=== PATIENT | male | born 1940 | race Two or more races ===

== ENCOUNTER 2022-05-17 10:51 | Inpatient (IN) | payer MEDICARE ==
[~2022-05-17] VITALS: Ht 180.3 cm; Wt 47.6 kg
--- NOTE | 2022-05-17 11:00 | NUR ---
ROLANDA PT 81 yrs male came from home s/p syncopy and dizzness awake and alert no sob
[2022-05-17] MEDS ORDERED: TDAP [DIPH/PERTUSSIS/TET] 0.5 ML VIAL IM ONE ×2 (11:19→11:30)
--- NOTE | 2022-05-17 11:20 | NUR ---
BLOOD DRAWN AND SENT TO LAB
[2022-05-17 11:24] LABS: BASOPHILS % (AUTO) 0.6 % (0.0-2.0); EOSINOPHILS % (AUTO) 0.1 % (0.0-6.0); HEMATOCRIT 39 % (39-51); HEMOGLOBIN 12.9 g/dL (13.5-17.5); LYMPHOCYTES # (AUTO) 1.9 K/uL (0.8-4.8); LYMPHOCYTES % (AUTO) 32.2 % (20.0-44.0); MEAN CORPUSCULAR HGB CONC 33 g/dl (31.0-36.0); MEAN CORPUSCULAR VOLUME 94 fL (80-96); MONOCYTES # (AUTO) 0.3 K/uL (0.1-1.30); MONOCYTES % (AUTO) 5.9 % (2.0-12.0); NEUTROPHILS # (AUTO) 3.5 K/uL (1.8-8.9); NEUTROPHILS % (AUTO) 61.2 % (43.0-81.0); PLATELET COUNT (AUTO) 172 K/uL (150-450); RED BLOOD CELL COUNT(AUTO) 4.21 MIL/uL (4.5-6.0); WHITE BLOOD COUNT (AUTO) 5.8 K/uL (4.3-11.0)
--- NOTE | 2022-05-17 11:25 | NUR ---
MOVE SHEET SUBMITTED.
[2022-05-17] MEDS ORDERED: IV NS 0.9% 1,000 ML BAG IV ONE ×2 (11:30→12:30)
[2022-05-17 11:44] LABS: ALANINE AMINOTRANSFERASE 59 U/L (12-78); ALBUMIN 2.7 g/dL (3.4-5.0); ALCOHOL, BLOOD < 3 mg/dL (0-0); ALKALINE PHOSPHATASE 71 U/L (46-116); ASPARTATE AMINOTRANSFERASE 180 U/L (15-37); BILIRUBIN,DIRECT 0.4 mg/dL (0.0-0.2); CALCIUM, SERUM 8.6 mg/dL (8.5-10.1); CARBON DIOXIDE 30 mmol/L (21-32); CHLORIDE 103 mmol/L (98-107); CREATININE 1.4 mg/dL (0.6-1.3); GLUCOSE 181 mg/dL (74-106); POTASSIUM 3.1 mmol/L (3.5-5.1); SODIUM SERUM 143 mmol/L (136-145); TOTAL PROTEIN, SERUM 6.8 g/dL (6.4-8.2); UREA NITROGEN, BLOOD 39 mg/dL (7-18)
[2022-05-17 11:57] LABS: SERUM AMMONIA 9 umol/L (11-32)
[2022-05-17 12:10] LABS: ACETAMINOPHEN < 10 ug/ml (10-30)
[2022-05-17] MEDS ORDERED: CEFEPIME 1 GM in IV D5W 50 ML IV ONE (12:30)
[2022-05-17] MEDS ORDERED: VANCOMYCIN 1 GM in IV D5W 250 ML IV ONE (12:30)
--- NOTE | 2022-05-17 13:00 | NUR ---
[facility] CALLED HUMAN RESOURCES MGR PAGED.
[2022-05-17] MEDS: Magnesium 1GM/D5W 100ML PREMIX 100 ML IV SCH ×4 (14:00→17:05)
[2022-05-17 14:03] LABS: BILIRUBIN,URINE 1+ (NEGATIVE); COLOR,URINE DARK YELLOW (YELLOW); LEUKOCYTE ESTERASE ,URINE NEGATIVE (NEGATIVE); NITRITE, URINE NEGATIVE (NEGATIVE); PH,URINE 5.5 (5.0-8.0); PROTEIN,URINE 1+ mg/dl (NEGATIVE); UGLUCOSE NEGATIVE (NEGATIVE)
[2022-05-17 14:19] LABS: BACTERIA,URINE None seen /HPF (None Seen); SQUAMOUS EPITHELIAL CELL,UR None Seen /HPF (None Seen); WBC,URINE NONE SEEN /HPF (0-3)
[2022-05-17] MEDS ORDERED: Magnesium 1GM/D5W 100ML PREMIX 200 ML IV ONE (14:40)
--- NOTE | 2022-05-17 15:46 | NUR ---
309-2. BETH FOR REPORT
[2022-05-17] MEDS ORDERED: POTASSIUM CHLORIDE 20 MEQ TAB.PRT.SR PO ONE ×2 (16:00→17:06)
--- NOTE | 2022-05-17 17:17 | NUR ---
NM LUNG VQ WAS COMPLETED.TECH:RB
--- NOTE | 2022-05-17 17:51 | NUR ---
Patient transferred to [facility], report given to Judy. All care endorsed.
[2022-05-17] MEDS ORDERED: MAGNESIUM HYDROXIDE 30 ML UDC PO PRN (18:00)
[2022-05-17] MEDS ORDERED: ACETAMINOPHEN 325 MG TABLET PO PRN (18:00)
[2022-05-17] MEDS ORDERED: MAG HYDROX/AL HYDROX/SIMETH 30 ML UDC PO PRN (18:00)
[2022-05-17] MEDS ORDERED: Z GUARD REMEDY 4 OZ OINT TP PRN (18:00)
[2022-05-17] MEDS ORDERED: ONDANSETRON HCL/PF 4 MG/2 ML VIAL IVP PRN (18:00)
[2022-05-17] MEDS ORDERED: ZOLPIDEM TARTRATE 5 MG TABLET PO PRN (18:00)
--- NOTE | 2022-05-17 19:30 | NUR ---
noc rn opening note received patient in bed, eating dinner. a/ox4, Hard of hearing. no s/s of apparent distress on room air. denies pain at this time. tele monitor reading sr with 62 bpm. IV NS running @75mls/hr. needs attended for now safety put in place. will continue with the plan of care for patient.
[2022-05-17] MEDS: IV NS 0.9% 1,000 ML IV PRN (19:59)
[2022-05-17 20:00] VITALS: BP 100/67
--- NOTE | 2022-05-17 20:01 | NUR ---
ACUTE DIALYSIS REGISTERED NURSEPRINTED CIRCUIT BOARD PCB DESIGNER NOTES ADMITTED A PATIENT FROM ER WITH C/C OF SYNCOPE AND WITH DIAGNOSIS OF PNEUMONIA AND PRESYNCOPE, ALERT AND ORIENT X 4 , VERBALLY RESPONSIVE AND WITH HARD OF HEARING BOTH EARS , FULL CODE AND PATIENT WITH NO KNOWN ALLERGY , ROOM AIR AND TOLERATED WELL , BODY ASSESSMENT DONE AND PHOTOS TAKEN PER HOSPITAL PROTOCOL , NO SOB OR DISTRESS NOTED , NO C/O OF HERRON AND DISCOMFORT , PATIENT ON BEDREST , CARDIAC LOW FAT , LOW CHOLESTEROL AND 2GM NA , IV ACCESS ON RIGHT FOREARM AND ALL BELONGINGS WERE ACCOUNTED FOR , V/S TAKEN AND RECORDED BP 147/83, P 110 , RR 20 , 95% O2 SAT AND 98.2 TEMP , ON TELE MONITOR WITH SR OF 110 PAC , SAFETY MEASURES PROVIDED , SIDERAILS UP X 2 , CALL LIGHT WITHIN REACH AND ENDORSED TO NEXT SHIFT .
[2022-05-18] MEDS ORDERED: CEFEPIME 1 GM in IV D5W 50 ML IV SCH (02:00)
[2022-05-18 05:23] VITALS: BP_SYST 125; BP_SYST 139; BP_SYST 154; BP_DIAS 78; BP_DIAS 81; BP_DIAS 99
[2022-05-18 05:46] LABS: BASOPHILS % (AUTO) 0.3 % (0.0-2.0); EOSINOPHILS % (AUTO) 0.7 % (0.0-6.0); HEMATOCRIT 39 % (39-51); HEMOGLOBIN 12.6 g/dL (13.5-17.5); LYMPHOCYTES # (AUTO) 2.6 K/uL (0.8-4.8); LYMPHOCYTES % (AUTO) 37.9 % (20.0-44.0); MEAN CORPUSCULAR HGB CONC 33 g/dl (31.0-36.0); MEAN CORPUSCULAR VOLUME 93 fL (80-96); MONOCYTES # (AUTO) 0.4 K/uL (0.1-1.30); MONOCYTES % (AUTO) 5.8 % (2.0-12.0); NEUTROPHILS # (AUTO) 3.8 K/uL (1.8-8.9); NEUTROPHILS % (AUTO) 55.3 % (43.0-81.0); PLATELET COUNT (AUTO) 174 K/uL (150-450); RED BLOOD CELL COUNT(AUTO) 4.14 MIL/uL (4.5-6.0); WHITE BLOOD COUNT (AUTO) 6.9 K/uL (4.3-11.0)
[2022-05-18 06:13] LABS: THYROID STIMULATING HORMONE 1.213 uIU/mL (0.358-3.74)
[2022-05-18 06:18] LABS: CALCIUM, SERUM 8.1 mg/dL (8.5-10.1); CREATININE 1.1 mg/dL (0.6-1.3); MAGNESIUM 2.1 mg/dL (1.8-2.4); PHOSPHORUS 2.2 mg/dL (2.5-4.9)
--- NOTE | 2022-05-18 06:50 | NUR ---
noc rn closing patient in bed, on his phone at this time. no s/s of apparent distress on room air. denies pain at this time. reading SR on the tele monitor with PVC's. IV NS running @ 75mls/hr. Patient ambulates with walker and with assist. all needs attended. all scheduled medications administered. will endorse to SARIKA Singh for continuity of patient care.
--- NOTE | 2022-05-18 07:52 | NUR ---
RN OPENING NOTE PATIENT AWAKE IN BED RESTING, A/O X 4. NO S/S OF PAIN NOTED AT THIS TIME. ON ROOM AIR, NO DISTRESS OR SHORTNESS OF BREATH NOTED. IV ACCESS RFA #18G, INTACT, PATENT AND FLUSHING WELL. PATIENT WITH EXTERNAL RADIOLOGY RECEPTIONIST WITH CURRENT READING OF SR WITH PVC'S AND HR OF 62. FALL AND SAFETY MEASURES IN PLACE, BED ALARM ON, BED IN LOW AND LOCK POSITION, CALL LIGHT AND TABLE WITHIN EASY REACH, SIDE RAILS UP X2. WILL CONTINUE TO MONITOR.
[2022-05-18] MEDS: PANTOPRAZOLE 40 MG TABLET.DR PO SCH (07:55)
[2022-05-18 08:00] VITALS: BP 119/66
[2022-05-18] MEDS ORDERED: K PHOS NEUTRAL 250 MG TABLET PO ONE (09:00)
[2022-05-18] MEDS ORDERED: CHOL100043 PO (09:21)
[2022-05-18] MEDS ORDERED: ACET-868 PO (09:21)
[2022-05-18] MEDS ORDERED: LISI1TAB55 PO (09:21)
[2022-05-18] MEDS ORDERED: ALBU18HF2 IH (09:21)
[2022-05-18] MEDS: IV NS 0.9% 1,000 ML IV PRN (09:32)
[2022-05-18] MEDS: NEUTRA PHOS 1 POWD.PACKET PO SCH ×2 (10:04→17:03)
[2022-05-18] MEDS: CEFEPIME 2 GM in IV D5W 100 ML IV SCH ×2 (11:31→23:49)
[2022-05-18 12:00] VITALS: BP 129/72
[2022-05-18 12:17] LABS: THYROID STIMULATING HORMONE 0.829 uIU/mL (0.358-3.74)
[2022-05-18] MEDS ORDERED: VANCOMYCIN 0.75 GM in IV D5W 250 ML IV SCH (13:00)
[2022-05-18] MEDS: VANCOMYCIN 1 GM in IV D5W 250 ML IV SCH (14:15)
[2022-05-18 16:00] VITALS: BP 110/67
--- NOTE | 2022-05-18 18:50 | NUR ---
DEBONER OPENING NOTES PATIENT IS AWAKE, ALERT AND ORIENTED. A/O X 4. NO S/S OF PAIN NOTED AT THIS TIME. ON ROOM AIR, NO DISTRESS OR SHORTNESS OF BREATH NOTED. IV ACCESS LFA #18G, INTACT, PATENT AND FLUSHING WELL. SAFETY MEASURES GIVEN WIHT BED ON LOWEST POSITION AND LOCKED. BED ALARM ON. BED IN LOWEST AND LOCKED POSITION. CALL LIGHT AND TABLE WITHIN EASY REACH. SIDE RAILS UP X2. WILL CONTINUE WITH THE PLAN OF CARE.
--- NOTE | 2022-05-18 19:01 | NUR ---
RN CLOSING NOTE PATIENT AWAKE IN BED RESTING, A/O X 4. NO S/S OF PAIN NOTED AT THIS TIME. ON ROOM AIR, NO DISTRESS OR SHORTNESS OF BREATH NOTED. IV ACCESS LFA #18G, INTACT, PATENT AND FLUSHING WELL. PATIENT WITH EXTERNAL FARM LOAN INSPECTOR WITH CURRENT READING OF SR AND HR OF 69. SCHEDULE MEDICATIONS ADMINISTERED. FALL AND SAFETY MEASURES IN PLACE, BED ALARM ON, BED IN LOW AND LOCK POSITION, CALL LIGHT AND TABLE WITHIN EASY REACH, SIDE RAILS UP X2. WILL ENDORSE TO DEPARTMENT STORE SALESPERSON.
[2022-05-18 20:55] VITALS: BP 148/74
[2022-05-19] VITALS: BP 148/92
[2022-05-19 05:00] VITALS: BP 157/81
[2022-05-19 05:48] LABS: BASOPHILS % (AUTO) 0.2 % (0.0-2.0); EOSINOPHILS % (AUTO) 0.5 % (0.0-6.0); HEMATOCRIT 33 % (39-51); HEMOGLOBIN 11.1 g/dL (13.5-17.5); LYMPHOCYTES # (AUTO) 1.7 K/uL (0.8-4.8); LYMPHOCYTES % (AUTO) 30.1 % (20.0-44.0); MEAN CORPUSCULAR HGB CONC 34 g/dl (31.0-36.0); MEAN CORPUSCULAR VOLUME 92 fL (80-96); MONOCYTES # (AUTO) 0.4 K/uL (0.1-1.30); MONOCYTES % (AUTO) 6.6 % (2.0-12.0); NEUTROPHILS # (AUTO) 3.5 K/uL (1.8-8.9); NEUTROPHILS % (AUTO) 62.6 % (43.0-81.0); PLATELET COUNT (AUTO) 161 K/uL (150-450); RED BLOOD CELL COUNT(AUTO) 3.54 MIL/uL (4.5-6.0); WHITE BLOOD COUNT (AUTO) 5.5 K/uL (4.3-11.0)
[2022-05-19 06:05] LABS: CALCIUM, SERUM 7.1 mg/dL (8.5-10.1); CREATININE 0.9 mg/dL (0.6-1.3); MAGNESIUM 1.3 mg/dL (1.8-2.4); PHOSPHORUS 2.3 mg/dL (2.5-4.9)
[2022-05-19 06:10] LABS: POTASSIUM 2.6 mmol/L (3.5-5.1)
--- NOTE | 2022-05-19 06:10 | NUR ---
HIGH DENSITY FINISHING OPERATOR NOTES PATIENT'S POTASSIUM LEVEL HAS CRITICAL VALUE OF 2.6 PER JASPER FROM LABORATORY. WILL REPORT TO THE DOCTOR.
[2022-05-19 07:09] VITALS: BP 157/81
--- NOTE | 2022-05-19 07:10 | NUR ---
CHAIN LINK FENCE INSTALLER CLOSING NOTES PATIENT AWAKE IN BED RESTING, A/O X 4. NO S/S OF PAIN NOTED AT THIS TIME. ON ROOM AIR, NO DISTRESS OR SHORTNESS OF BREATH NOTED. IV ACCESS LFA #18G, INTACT, PATENT AND FLUSHING WELL. PATIENT WITH EXTERNAL INSTRUCTION LIBRARIAN WITH CURRENT READING OF SR WITH PVC @ HR OF 66. SCHEDULE MEDICATIONS ADMINISTERED. FALL AND SAFETY MEASURES IN PLACE, BED ALARM ON, BED IN LOW AND LOCK POSITION, CALL LIGHT AND TABLE WITHIN EASY REACH, SIDE RAILS UP X2. WILL ENDORSE TO PHOTOGRAPHY INTERN.
--- NOTE | 2022-05-19 07:20 | NUR ---
RN OPENING NOTE RECEIVED PATIENT IN BED AWAKE, A/O X4, VERBALLY RESPONSIVE. NO SIGNS OF ACUTE DISTRESS NOTED. NO C/O PAIN OR DISCOMFORT AT THIS TIME. NOTED WITH IV ACCESS ON LEFT FOREARM #20G, INTACT AND PATENT WITH NS @75 ML/HR RUNNING. ON TELE MONITOR SHOWING SR WITH PAC'S. HR @87. SAFETY MEASURE IN PLACE. BED IN LOW AND LOCKED POSITION. SIDE RAILS UP X2, CALL LIGHT PLACED WITHIN EASY REACH. WILL CONTINUE TO MONITOR PATIENT.
[2022-05-19] MEDS: PANTOPRAZOLE 40 MG TABLET.DR PO SCH (07:50)
[2022-05-19 08:30] VITALS: BP 125/72
[2022-05-19] MEDS: POTASSIUM CHLORIDE 20 MEQ TAB.PRT.SR PO SCH ×5 (09:06→13:25)
[2022-05-19] MEDS: Magnesium 1GM/D5W 100ML PREMIX 100 ML IV SCH ×2 (09:07→10:12)
[2022-05-19] MEDS: NEUTRA PHOS 1 POWD.PACKET PO SCH ×2 (09:07→17:12)
--- NOTE | 2022-05-19 09:33 | NUR ---
WOUND CARE CONSULT: PT PRESENTS WITH MULTIPLE SKIN ISSUES INCLUDING DRY ABRASIONS TO FACE AND KNEES, DISCOLORATION TO RT FOOT WITH COOL RT TOES, RT BACK DEEP TISSUE INJURY/ABRASION, ALL PRESENT ON ADMISSION. PT STATES HAS LOST QUITE A BIT OF WEIGHT RECENTLY. DIETARY CONSULT IN PLACE. DISCUSSED SKIN PROTECTION AND WOUND CARE RECOMMENDATIONS WITH NURSING STAFF. DR YUE BASSETT CALLED FOR SURGICAL CONSULT ON BACK WOUND. IN AGREEMENT WITH PLAN OF CARE. Addendum: 05/19/22 at 0936 by ZAKIA BERGERU Amended: Links added. Addendum: 05/19/22 at 0949 by ZAKIA BERGERU UPON FURTHER INVESTIGATION, PT NOTED TO HAVE LESION WHICH EXTENDS FROM RT CHEST TO RT BACK, PRESENT ON ADMISSION. PT NOW STATES THAT THIS DEVELOPED AFTER HE FELL FORWARD ON HIS FACE AND KNEES. DR PAYNE EXAMINED PT. DR YUE BASSETT NOTIFIED THAT I.D. WILL SEE PT PER PMD.
[2022-05-19] MEDS: CEFEPIME 2 GM in IV D5W 100 ML IV SCH ×2 (11:13→23:49)
[2022-05-19 11:59] VITALS: BP 141/79
[2022-05-19] MEDS: VANCOMYCIN 1 GM in IV D5W 250 ML IV SCH (12:48)
--- NOTE | 2022-05-19 12:51 | NUR ---
SS consult: SS Consult requested for safe discharge planning. The pt. is 81-year-old male admitted to [facility] for Presyncope, pneumonia. BLAS met with pt. at bedside. The pt. is alert & oriented x 4 and makes good eye contact. The pt. appears unkempt. The pt. has euthymic mood & affect. Pt. denies SI/HI and denies hallucinations. Per pt. he resides at home [[address] [place] [address]; [phone]] alone. Per pt. he fell at home after tripping over raised asphalt on 05/13/2022 and was taken to [facility] and [place] home the same day. Pt. states he 05/17/[address] to [facility] where he had difficulty ambulating and was feeling weak and lightheaded, so paramedics brought him to the hospital. SW discussed if he is open to SNF or ARU if MD recommends this and pt. stated he will consider it. BLAS encouraged pt. to accept help with physical therapy so he may regain some strength. BLAS discussed alleged 30 lb weight loss with pt. and he stated he has lost hat weight in about 2 years time. Pt. states he has been working with him primary care physician Dr. Brumfield in [place] to figure out why he is losing weight. Pt. denies drug use and states he drinks occasionally, and it is not a problem for him. Per CM note pt. is not agreeable to SNF placement. BLAS provided pt. with senior resources including for transportation, meal delivery, DME, insurance assistance etc. Pt. was receptive and stated he will use resources as needed. Pt. denies any history of mental illness. Per pt. he is ambulatory with a walker and will use it for safe ambulation. Per pt. he receives SSI. [place] Plan: Per pt. he would like to return home [[address] [facility] [place] [address]; [phone]] alone. Pt. states his friend may be able to pick him up. BLAS provided pt. with the follow senior resources and pt. accepted them: ABUSE PREVENTION: ELDER ABUSE HOTLINE (17/11) ADULT PROTECTIVE SERVICES HOTLINE LONG-TERM CARE [facility] AREA ON AGING (HOTLINE) ADULT DAY HEALTH CARE CARE CENTERS: Private pay or Medi-kimberley funded adult day care [facility] Day Health Care [facility] , [facility] , [facility] , [facility] Adult Day Health Care , [facility] Adult Day Health Care , [facility] Adult Daycare Center , [place] [facility] , [facility] , [place] ALZHEIMERS DISEASE/DEMENTIA: Alzheimers Association Helpline [facility] www.alz.org/[facility] Department of Aging www.lacity.org Family Caregiver [place] www.caregiver.org [place] Caregiver Resources Center/Family Support www.suburban medical center.org CANCER RESOURCES: [place] Cancer Society www.cancer.org Cancer Support Community www.CancerSupportVvsb.org: CancerCare www.cancercare.org Maurisio [facility] Cancer Support Center www.spark.org COMMUNITY HEALTH ASSOCIATIONS: AARP www.aarp.org ALS Association (ask for Margie) www.als.org [place] Diabetes Association www.diabetes.org [place] Heart Association www.heart.org [place] Lung Association www.lungusa.org [place] Parkinson Disease Association www.apdaparkinson.org [place]an Abanda , www.redcross.org Arthritis Foundation www.arthritis.org Crohns & Colitis Foundation of [place]an www.ccfa.org/chapters/kervin National Multiple Sclerosis Society www.nationalmssociety.org Myasthenia Gravis Foundation www.myasthenia-ca.org National Stroke Association www.stroke.org CONSERVATORSHIP & GUARDIANSHIP: AARP Bet Tzedek Legal Services Center for Health Care Rights Eldercare Information and Referral Metal Sprayer Machined Parts [facility]: [facility] Referral Service [facility] Legal Services Office of the Public Guardian [place] EYESIGHT DISORDER RESOURCES: [place] Macular Degeneration Foundation [facility] www.[facility] centerin[facility].org GRIEF AND BEREAVEMENT RESOURCES: The [place] , [facility] THE [place] Connection , [facility] Bereavement Center , [place] HEARING DISORDER RESOURCES: [place] Telephone Access Program Deaf and Disabled Telecommunications Program www.ddtp.cpuc.ca.gov HearRx Hearing Centers ([place]) Better Hearing Systems , [place] GLAD ([facility] Agency on Deafness) V/ TTY; Legal Support Specialist , [facility] Hearing [facility] -low income hearing aid assistance www.collinsGini.netprotestant hospitalringfoundation.org [place] Hearing Care Diana HELP AT HOME CAREGIVER SUPPORT: In Home Support Services (Must have Medi-Kimberley to be eligible) *Ask for a list of agencies that provide services to assist with care in the home. Local Senior Centers also have listings of care providers. HOME SAFETY MODIFICATIONS AND EQUIPMENT: Senior centers have additional referrals. [place] RMDMgroup and Apple Seeds Investment Dept. Handyworker Program (low income) or Visit http://hcidla.[facility].org/kbj-ivagos-nb for more information National Seating and Mobility and/or ; Forever Active www.foreverg-Nosticsmed.Livekick Stay Home Safe www.Stayhomesafe.Livekick LIFE ALERT RESPONSE SYSTEM: AWAKline Services 399-684-8228 www. Box Score Games Life Alert 095-865-8803 www.lifeSimple Beatrtjiffstore Life Station 154-505-4362 www.Shanghai Soco Softwareation.Livekick Safe Return 515-140-3040 www.alz.or/safereturn Cell Phones for Seniors www.Iddiction MEALS AND FOOD PROGRAMS: [place] Meals on Wheels [phone] [place] Meals on Wheels [phone] [facility] [phone] [place] to the Homebound [phone] [place] to the Homebound [phone] [facility] to the Homebound [phone] [facility] to the Homebound [phone] Mohamud Henrry Rosado [phone] Kyle Garcia [place] [phone] ONE Generation [phone] [facility] [phone] [facility] [phone] Meals on Wheels [phone] For all ages: $6.85/ meal w side. Delivered M-F from 10 am-1pm. Application and payment is done over the phone. Frozen meals available for weekends. Emergency Food Coalition [phone] Katheryn Concrete Batch Plant Operator [phone] [facility] [phone] Katt Campa Outreach- Brown bag lunches [phone] SY[facility]IA [facility] [phone] MEAL/GROCERY DELIVERY PROGRAMS: [facility] Gourmet Meals [phone]- [facility] [phone]- [facility] Magic Kitchen [phone] Moms Meals [phone] (ask Christianson for Discount Select grocery stores may provide delivery. MEDICAL INSURANCE SUPPORT SERVICES: Center for Health Care Rights [phone] Health Insurance Counseling/Advocacy Programs (HICAP)-Must have Medicare. Offers counseling for Medi-Kimberley eligibility [phone] [facility] Concrete Batch Plant Operator [phone] www.[facility].ca.gov Medicare [phone] www.socialsecurity.org Social Security [phone] SENIOR ACTIVITY PROGRAMS: *Contact a local senior center, adult school, recreation facility or community college for education, fitness, recreation, and social programs. Aquatic Therapy and Adapted Exercise programs through [facility] [phone] Encore at [facility] [phone] www.[facility]/encore H2U- Senior Friends [phone] [place] Senior Programs [phone] www.oasisnet.org Suddenly 65 www.aidwyxtx33.com SENIOR CENTERS: [facility] [phone] [facility] Center[facility] [phone] [facility] [phone] [facility] [phone] [facility] [phone] [facility] [phone] [facility] [phone] [facility] [phone] One Generation, [facility] [phone] [facility] [phone] [facility] [phone] [facility] [phone] [facility] [phone] TRANSPORTATION: Local [facility] may have applications for transportation programs and additional resources. ACCESS Services [phone] Transportation for seniors and disabled persons 7 days a week requiring 254 hr. advance reservation. Must apply and register for program rm eligible. LookSharp (powering InternMatch) 097-020-1948 or [phone] Transportation for seniors and persons with ADA card/metro disabled card in the [facility]. M-F only. Must register for services. ONE GENERATION [phone] Serves 65 years + in conjunction with World Vital Records program. Must be registered with both programs. A to B Transport [phone] Provides wheelchair/gurney van service. Adult Medical Transport [phone] Accepts [facility] with prior authorization. Care Van [phone] Provides wheelchair Transport. [facility] Wide Transportation [phone] Provides gurney service [facility] [phone] Gurney Transport. [facility] Town Transportation [phone] wheelchair & gurney transport [facility] Transportation [phone] wheelchair & gurney transport [place] Non-Emergency Transport [phone] wheelchair & gurney transport [facility] Living [place] [phone] Short Term Transportation primarily for adults with disabilities on social security income. Nominal fee may apply and a reservation is required. [facility] Cab [phone] or [phone] True Sol Innovations [phone] [place] [address] Referral Services -[phone] For additional programs & services VETERANS RESOURCES: Submissions for Aid and Attendance should be done directly to Federal VA office locatd at : [address] [facility] [phone] National Caregiver Support Line [phone] [facility]ley [facility] Veterans Services Field Office [phone] [place] Department of Affairs [phone] Pension Information [phone]
[2022-05-19] MEDS: HYDROCHLOROTHIAZIDE 25 MG TABLET PO SCH (13:05)
[2022-05-19] MEDS: LISINOPRIL (20MG) 20 MG TABLET PO SCH (13:05)
[2022-05-19 16:10] VITALS: BP 160/97
[2022-05-19] MEDS: ENSURE ENLIVE 237 ML LIQUID (VANILLA) PO SCH (17:12)
--- NOTE | 2022-05-19 18:52 | NUR ---
RN CLOSING NOTE PATIENT IN BED AWAKE, A/O X4, VERBALLY RESPONSIVE. NO SIGNS OF ACUTE DISTRESS NOTED. NO C/O PAIN OR DISCOMFORT AT THIS TIME. IV ACCESS ON LEFT FOREARM #20G, INTACT AND PATENT SALINE LOCKED. CONTINUE ON TELE MONITOR SHOWING SR WITH OCCASIONAL PVC'S. HR @87. SAFETY MEASURE MAINTAINED, BED IN LOW AND LOCKED POSITION. SIDE RAILS UP X2, CALL LIGHT PLACED WITHIN EASY REACH. WILL ENDORSE TO NEXT SHIFT FOR CONTINUITY OF CARE.
--- NOTE | 2022-05-19 19:34 | NUR ---
RN OPENING NOTE PATIENT AWAKE IN BED. A/OX4. NO S/S OF DISTRESS, BREATHING WITHOUT DIFFICULTY ON ROOM AIR. LFA #20 SL INTACT AND PATENT. TELE READS SR 72. SAFETY MEASURES IN PLACE: BED LOCKED AND AT LOWEST POSITION, RAILS UP X2, CALL FERRIS WITHIN REACH. WILL CONTINUE TO MONITOR PATIENT.
[2022-05-20 05:52] LABS: BASOPHILS % (AUTO) 0.1 % (0.0-2.0); EOSINOPHILS % (AUTO) 0.1 % (0.0-6.0); HEMATOCRIT 32 % (39-51); HEMOGLOBIN 10.9 g/dL (13.5-17.5); LYMPHOCYTES % (AUTO) 23.6 % (20.0-44.0); MEAN CORPUSCULAR HGB CONC 34 g/dl (31.0-36.0); MEAN CORPUSCULAR VOLUME 91 fL (80-96); MONOCYTES # (AUTO) 0.5 K/uL (0.1-1.30); MONOCYTES % (AUTO) 6.3 % (2.0-12.0); NEUTROPHILS % (AUTO) 69.9 % (43.0-81.0); PLATELET COUNT (AUTO) 166 K/uL (150-450); RED BLOOD CELL COUNT(AUTO) 3.48 MIL/uL (4.5-6.0); WHITE BLOOD COUNT (AUTO) 8.6 K/uL (4.3-11.0)
--- NOTE | 2022-05-20 06:17 | NUR ---
RN CLOSING NOTE PATIENT ASLEEP IN BED. A/OX4, [place]. NO S/S OF DISTRESS, BREATHING WITHOUT DIFFICULTY ON ROOM AIR. LFA #20 SL INTACT AND PATENT. TELE READS SR 82. SAFETY MEASURES IN PLACE: BED LOCKED AND AT LOWEST POSITION, RAILS UP X2, CALL FERRIS WITHIN REACH. WILL ENDORSE TO NEXT SHIFT FOR MATI.
[2022-05-20 06:22] LABS: ALBUMIN 2.1 g/dL (3.4-5.0); CALCIUM, SERUM 7.7 mg/dL (8.5-10.1); CREATININE 0.9 mg/dL (0.6-1.3); MAGNESIUM 1.5 mg/dL (1.8-2.4); PHOSPHORUS 2.9 mg/dL (2.5-4.9); TOTAL PROTEIN, SERUM 5.8 g/dL (6.4-8.2)
--- NOTE | 2022-05-20 07:30 | NUR ---
BIOMASS PRODUCTION MANAGER OPENING NOTE PATIENT AWAKE IN BED. A/OX4, ABLE TO MAKE NEEDS KNOWN. ON ROOM AIR WITH NO S/S OF RESPIRATORY DISTRESS OR SOB. ON TELE MONITOR READING SR HR 89BPM. IV ACCESS ON LFA, #20 SL INTACT AND PATENT WITH NO SIGNS OF INFILTRATION. SAFETY MEASURES IN PLACE WITH BED LOCKED AND AT LOWEST POSITION, SIDE RAILS UP X2, CALL LIGHT AND TRAY WITHIN REACH. WILL CONTINUE TO MONITOR.
[2022-05-20] MEDS: ENSURE ENLIVE 237 ML LIQUID (VANILLA) PO SCH ×3 (07:58→17:15)
[2022-05-20 08:00] VITALS: BP 126/84
[2022-05-20] MEDS: HYDROCHLOROTHIAZIDE 25 MG TABLET PO SCH (08:23)
[2022-05-20] MEDS: PANTOPRAZOLE 40 MG TABLET.DR PO SCH (08:23)
[2022-05-20] MEDS: CHOLECALCIFEROL 1,000 UNIT TABLET (VIT D3) PO SCH (08:24)
[2022-05-20] MEDS: LISINOPRIL (20MG) 20 MG TABLET PO SCH (08:24)
[2022-05-20] MEDS: POTASSIUM CHLORIDE 20 MEQ TAB.PRT.SR PO SCH ×3 (08:52→12:24)
[2022-05-20] MEDS ORDERED: MAGNESIUM OXIDE 400 MG TABLET PO ONE (09:30)
[2022-05-20 12:00] VITALS: BP 121/67
[2022-05-20] MEDS: CEFEPIME 2 GM in IV D5W 100 ML IV SCH (12:09)
[2022-05-20] MEDS ORDERED: K PHOS NEUTRAL 250 MG TABLET PO ONE (14:00)
--- NOTE | 2022-05-20 14:18 | NUR ---
RN NOTE PATIENTS SON KEITH CALLED TO INFORM HOSPITAL STAFF THAT HIS DAD NEEDS A CHILD CARE EDUCATION COORDINATOR CONSULT. THAT HIS DAD REFUSES TO TELL ANYONE THE TRUTH AND THAT HIS DAD LOST HIS JOB 8 MONTHS AGO AND IS HOMELESS AND LIVING IN HIS CAR. HE STATES THE ADDRESS HE TELLS PEOPLE IS AN OLD ADDRESS AND NO LONGER A VALID ONE. WILL FOLLOW UP WITH CHILD CARE EDUCATION COORDINATOR. BOB PHONE NUMBER IS [phone]. HE LIVES IN [place] AND IS NOT AVAILABLE TO GET HIS FATHER.
[2022-05-20 16:00] VITALS: BP 144/81
--- NOTE | 2022-05-20 19:22 | NUR ---
RN CLOSING NOTE PATIENT AWAKE IN BED. A/OX4,ABLE TO MAKE NEEDS KNOWN. NO S/S OF DISTRESS, BREATHING WITHOUT DIFFICULTY ON ROOM AIR. IV ACCESS RIGHT UPPER ARM #20. INTACT AND PATENT. TELE READS SR 80. NPO AT MIDNIGHT TONIGHT. SAFETY MEASURES IN PLACE: BED LOCKED AND AT LOWEST POSITION, RAILS UP X2, CALL FERRIS WITHIN REACH. ALL NEEDS MET AT THIS TIME. WILL ENDORSE TO CREAM CHEESE MAKER NURSE FOR MATI.
--- NOTE | 2022-05-20 19:52 | NUR ---
RN OPENING NOTE PATIENT IS AWAKE IN BED. A/OX4. NO S/S OF DISTRESS, BREATHING WITHOUT DIFFICULTY ON ROOM AIR. RAC #20 SL INTACT AND PATENT. TELE READS SR 82. SAFETY MEASURES IN PLACE: BED LOCKED AND AT LOWEST POSITION, RAILS UP X2, CALL FERRIS WITHIN REACH. WILL CONTINUE TO MONITOR PATIENT.
[2022-05-21] MEDS: CEFEPIME 2 GM in IV D5W 100 ML IV SCH ×3 (00:08→23:51)
--- NOTE | 2022-05-21 06:23 | NUR ---
RN CLOSING NOTE PATIENT ASLEEP IN BED. A/OX4. NO S/S OF DISTRESS, BREATHING W/O DIFFICULTY ON ROOM AIR. RFA #20 SL. SAFETY MEASURES IN PLACE: BED LOCKED AND IN POSITION, CALL FERRIS WITHIN REACH. WILL ENDORSE TO NEXT SHIFT FOR MATI.
[2022-05-21 07:01] LABS: BASOPHILS % (AUTO) 0.1 % (0.0-2.0); EOSINOPHILS % (AUTO) 0.2 % (0.0-6.0); HEMATOCRIT 32 % (39-51); HEMOGLOBIN 10.8 g/dL (13.5-17.5); LYMPHOCYTES # (AUTO) 1.5 K/uL (0.8-4.8); LYMPHOCYTES % (AUTO) 17.2 % (20.0-44.0); MEAN CORPUSCULAR HGB CONC 34 g/dl (31.0-36.0); MEAN CORPUSCULAR VOLUME 92 fL (80-96); MONOCYTES # (AUTO) 0.5 K/uL (0.1-1.30); NEUTROPHILS # (AUTO) 6.7 K/uL (1.8-8.9); NEUTROPHILS % (AUTO) 76.5 % (43.0-81.0); PLATELET COUNT (AUTO) 184 K/uL (150-450); RED BLOOD CELL COUNT(AUTO) 3.45 MIL/uL (4.5-6.0); WHITE BLOOD COUNT (AUTO) 8.8 K/uL (4.3-11.0)
[2022-05-21 07:45] LABS: ALANINE AMINOTRANSFERASE 86 U/L (12-78); ALBUMIN 1.9 g/dL (3.4-5.0); ALKALINE PHOSPHATASE 59 U/L (46-116); ASPARTATE AMINOTRANSFERASE 245 U/L (15-37); BILIRUBIN,TOTAL 0.8 mg/dL (0.2-1.0); CALCIUM, SERUM 7.6 mg/dL (8.5-10.1); CARBON DIOXIDE 31 mmol/L (21-32); CHLORIDE 97 mmol/L (98-107); CREATININE 0.9 mg/dL (0.6-1.3); GLUCOSE 95 mg/dL (74-106); MAGNESIUM 1.5 mg/dL (1.8-2.4); PHOSPHORUS 2.2 mg/dL (2.5-4.9); SODIUM SERUM 135 mmol/L (136-145); TOTAL PROTEIN, SERUM 5.8 g/dL (6.4-8.2); UREA NITROGEN, BLOOD 19 mg/dL (7-18)
--- NOTE | 2022-05-21 07:45 | NUR ---
RN Opening Note Patient in bed, sleeping, easily aroused, AOx4. Patient in bed with no signs of distress or discomfort, states no concerns. Will continue to monitor throughout shift and provide care as needed. All safety precautions taken,call light and table within reach, bed at lowest position.
[2022-05-21 08:00] VITALS: BP 125/79
[2022-05-21] MEDS: ENSURE ENLIVE 237 ML LIQUID (VANILLA) PO SCH ×3 (08:00→17:00)
[2022-05-21] MEDS: CHOLECALCIFEROL 1,000 UNIT TABLET (VIT D3) PO SCH (08:22)
[2022-05-21] MEDS: LISINOPRIL (20MG) 20 MG TABLET PO SCH (08:22)
[2022-05-21] MEDS: PANTOPRAZOLE 40 MG TABLET.DR PO SCH (08:22)
[2022-05-21] MEDS ORDERED: MAGNESIUM OXIDE 400 MG TABLET PO ONE (09:30)
[2022-05-21] MEDS ORDERED: POTASSIUM CHLORIDE 20 MEQ TAB.PRT.SR PO SCH (10:00)
[2022-05-21 13:50] VITALS: BP 129/76
--- NOTE | 2022-05-21 14:35 | NUR ---
Patient wheeled out by Cath-Lab team. All safety precautions taken.
[2022-05-21] MEDS ORDERED: IODIXANOL 150 ML IV ONE ×2 (14:37→15:37)
[2022-05-21] MEDS ORDERED: LIDOCAINE 1% INJ 50 ML MDV IJ ONE (14:37)
[2022-05-21] MEDS ORDERED: IV SET PRIMARY PUMP SET 1 EA INFUS.SET MC ONE (14:37)
[2022-05-21] MEDS ORDERED: IV NS 0.9% 1,000 ML ONE (14:37)
[2022-05-21] MEDS ORDERED: FENTANYL PF 100MCG/2ML AMPUL ONE (14:38)
[2022-05-21] MEDS ORDERED: MIDAZOLAM HCL 2 MG/2ML VIAL ONE (14:38)
--- NOTE | 2022-05-21 15:59 | NUR ---
SS NOTE: SW was made aware that pt.'s son, Constantine has stated pt. is homeless and staying in his car. SW attempted to meet with pt. to clarify, however, pt. was out for a procedure. SW will follow up at a later time.
[2022-05-21] MEDS ORDERED: NEUTRA PHOS 1 POWD.PACKET NG ONE (16:00)
--- NOTE | 2022-05-21 17:25 | NUR ---
RN NOTE PATIENT BROUGHT TO THE ICU S/P ABDOMINAL AORTAGRAM LEFT FEMURAL .BP 135/75 , 02 SAT 96 % ,PATIENT IS ON 02 4l VIA N/C .Patient in bed, sleeping, easily aroused, AOx4. Patient in bed with no signs of distress or discomfort, states no concerns. Will continue to monitor throughout THE END OF THE shift and provide care as needed. All safety precautions taken,call light and table within reach, bed at lowest position.
--- NOTE | 2022-05-21 18:36 | NUR ---
RN CLOSING NOTE PATIENT BROUGHT TO THE ICU S/P ABDOMINAL AORTAGRAM LEFT FEMURAL .BP 135/75 , 02 SAT 99 % ,PATIENT IS ON 02 4l VIA N/C .Patient in bed, sleeping, easily aroused, AOx4. Patient in bed with no signs of distress or discomfort, states no concerns. nO BLEEDING OR HEMATOMA NOTED OF TJHE LEFT INSERTION SITE , PERIPHERAL PULSES ARE PRESENT NO S/S OF COMPLICATIONS .. All safety precautions taken,call light and table within reach, bed at lowest position. Will endorse call center associate nirse to continue with observations on s/s of complications s/p abdominal aortagram
--- NOTE | 2022-05-21 19:40 | NUR ---
RN OPENING NOTES RECEIVED PATIENT ON BED, AWAKE ALERT, VERBALLY RESPONSIVE, ON NASAL CANULA @ 4LPM SATING AT 98%, RESPIRATORY EVEN AND UNLABORED, NO SOB, AFEBRILE, NO S/S OF DISTRESS NOTED. V/S TAKEN AND RECORDED. S/P ABDOMINAL AORTIC ANGIOGRAM LEFT FEMORAL. PATIENT STILL LAYING FLAT ON BED. NOTED WITH LEFT GROIN INCISION SITE, NO BLEEDING NOTED, NO HEMATOMA NOTED, DENIES PAIN,. NOTED WITH POPLITEAL PULSE AND PEDAL PULSE. PATIENT HAS LEFT FOREARM #G20, FLUSHED WITH NS, NO S/S OF INFILTRATION NOTED AT THIS TIME. ALL SAFETY PRECAUTION PROVIDED. BED IN LOWEST POSITION, LOCKED. BED ALARM ARMED. CALL LIGHT WITH IN REACH.
--- NOTE | 2022-05-21 20:00 | NUR ---
SARIKA NOTES NO POPLITEAL PULSE AND PEDAL PULSE NOTED ON RIGHT LOWER EXTREMITIES, RIGHT FOOT FEELS COLD. Addendum: 05/21/22 at 2139 by ABNER YUEN RN RIGHT FOOT TOES ARE PURPLISH IN COLOR.
--- NOTE | 2022-05-21 22:53 | NUR ---
RN NOTES REPORT GIVEN TO SARIKA HOLDEN. FOR CONTINUITY OF CARE.
--- NOTE | 2022-05-21 23:25 | NUR ---
RN NOTE PATIENT RECEIVED BACK TO THIS UNIT FROM SARIKA LEVINE AND WHIT RN, FROM ICU. PATIENT IS STABLE. A/OX4. NO S/S OF DISTRESS, BREATHING WITHOUT DIFFICULTY ON ROOM AIR. RFA #20 INTACT AND PATENT. NO BLEEDING NOTED AT CATH PROCEDURE SITE (L-GROIN FOR L-FEM ACCESS). NO PAIN NOTED. SAFETY MEASURES IN PLACE: BED LOCKED AND AT LOWEST POSITION, RAIL UP X2, HOB @30 DEGREES, CALL FERRIS WITHIN REACH. WILL CONTINUE TO MONITOR PATIENT.
--- NOTE | 2022-05-21 23:30 | NUR ---
SARIKA MCKEON TRANSFERRED TO [facility] ROOM 309-2 IN STABLE CONDITION. Addendum: 05/21/22 at 2338 by ABNER YUEN RN ENDORSED TO SARIKA HOLDEN THE CELLPHONE, OFFICE HELPER CLERICAL AND WALLET OF THE PATIENT, NO CREDIT CARD IN THE WALLET. AND ALSO NOTED SOME OF THE BELONGING IS STILL IN THE ROOM.
[2022-05-22 00:42] VITALS: BP 122/70
[2022-05-22 05:46] LABS: BASOPHILS % (AUTO) 0.1 % (0.0-2.0); EOSINOPHILS % (AUTO) 0.2 % (0.0-6.0); HEMATOCRIT 31 % (39-51); HEMOGLOBIN 10.6 g/dL (13.5-17.5); LYMPHOCYTES # (AUTO) 1.1 K/uL (0.8-4.8); LYMPHOCYTES % (AUTO) 14.3 % (20.0-44.0); MEAN CORPUSCULAR HGB CONC 34 g/dl (31.0-36.0); MEAN CORPUSCULAR VOLUME 93 fL (80-96); MONOCYTES # (AUTO) 0.4 K/uL (0.1-1.30); MONOCYTES % (AUTO) 5.5 % (2.0-12.0); NEUTROPHILS # (AUTO) 6.3 K/uL (1.8-8.9); NEUTROPHILS % (AUTO) 79.9 % (43.0-81.0); PLATELET COUNT (AUTO) 201 K/uL (150-450); RED BLOOD CELL COUNT(AUTO) 3.38 MIL/uL (4.5-6.0); WHITE BLOOD COUNT (AUTO) 7.9 K/uL (4.3-11.0)
[2022-05-22 06:25] LABS: CALCIUM, SERUM 8.2 mg/dL (8.5-10.1); CARBON DIOXIDE 29 mmol/L (21-32); CHLORIDE 100 mmol/L (98-107); CREATININE 0.8 mg/dL (0.6-1.3); GLUCOSE 70 mg/dL (74-106); MAGNESIUM 1.6 mg/dL (1.8-2.4); PHOSPHORUS 2.6 mg/dL (2.5-4.9); POTASSIUM 3.7 mmol/L (3.5-5.1); SODIUM SERUM 136 mmol/L (136-145); UREA NITROGEN, BLOOD 18 mg/dL (7-18)
--- NOTE | 2022-05-22 06:56 | NUR ---
RN CLOSING NOTE PATIENT ASLEEP IN BED. A/OX4. NO S/S OF DISTRESS, BREATHING WITHOUT DIFFICULTY ON ROOM AIR. RFA #20 SL INTACT AND PATENT. SAFETY MEASURES IN PLACE: BED LOCKED AND AT LOWEST POSITION, HOB AT 30 DEGREES, RAILS UP X2, CALL FERRIS WITHIN REACH. WILL ENDORSE TO NEXT SHIFT FOR MATI.
--- NOTE | 2022-05-22 07:24 | NUR ---
MS RN OPENING NOTES PATIENT RECEIVED IN BED AWAKE IN NO ACUTE SIGN OF DISTRESS. A/O X3-4. ABLE TO MAKE NEEDS KNOWN, DENIES PAIN OR ANY DISCOMFORTS AT THIS TIME. ON ROOM AIR, BREATHING EVEN AND UNLABORED. IV ACCESSES ON RFA G#20 AND LFA G#20 BOTH SL, INTACT AND PATENT. SAFETY MEASURES IN PLACE: BED LOCKED AND AT LOWEST POSITION, RAILS UP X2, CALL FERRIS WITHIN REACH. WILL CONTINUE TO MONITOR PATIENT.
[2022-05-22 08:00] VITALS: BP 128/75
[2022-05-22] MEDS: ENSURE ENLIVE 237 ML LIQUID (VANILLA) PO SCH ×3 (08:00→17:46)
[2022-05-22] MEDS: PANTOPRAZOLE 40 MG TABLET.DR PO SCH (08:07)
[2022-05-22] MEDS: LISINOPRIL (20MG) 20 MG TABLET PO SCH (08:42)
[2022-05-22] MEDS: CHOLECALCIFEROL 1,000 UNIT TABLET (VIT D3) PO SCH (08:42)
[2022-05-22] MEDS: Magnesium 1GM/D5W 100ML PREMIX 100 ML IV SCH ×2 (08:54→10:07)
--- NOTE | 2022-05-22 09:41 | NUR ---
RN NOTES DR RICHMNOD ORDER TO DO BLE VEIN MAPPING. ELECTRICAL TESTS SUPERVISOR ON UNIT AND MADE AWARE.
--- NOTE | 2022-05-22 11:44 | NUR ---
Rn Notes Ultrasound Lower Extremity Vein Mapping done, results shows "Superficial vein thrombosis of bilateral greater saphenous veins". Dr Peck made aware and acknowledged.
[2022-05-22] MEDS: CEFEPIME 2 GM in IV D5W 100 ML IV SCH (11:51)
--- NOTE | 2022-05-22 13:59 | NUR ---
SS Note: SS was notified that the pt.'s son, Constantine Bell [phone] (who resides in [place]) alerted staff that pt. is actually homeless and has been living in his vehicle. SW met with pt. at bedside. Pt. admitted to living in his car and that he had provided false information in prior interview that he was living in his home. Pt. did not want to discuss details of why he is now experiencing homelessness. However, pt. stated he is now agreeable to SNF placement. BLAS discussed with case management team who confirmed that pt. has now agreed to SNF placement and pt. was accepted to [facility]. Pt. pending medical clearance. SW provided pt. with homeless resources: housing, shelters, showers, food [place] etc. Pt. accepted them and signed homeless waiver which was placed in pt.'s chart. BLAS notified pt[facility]s [facility] to [facility]. BLAS provided pt. with the following resources: Winter Usp list : [facility]; AB Adult WSP site; KARMEN Adult WSP site; and WFD Adult WSP site; instruction to call 211 for availability. Year-round shelters: [facility] [address] [place], [place] [phone] ; [facility] [address] [place] [address]; [facility] Ouplsbp2692 [facility]. [facility] [phone] Hygiene: [facility]: [address] [facility] ; [facility] [address] [facility] ; [facility] 1052 [facility] . Food Resources: [employer] [facility] at [facility]- [address]. [place]; Meet Each Need with Dignity ([facility]) [address] [place]; [facility] 7717 [facility]; [facility] [address] Concetta Quinonez. Mental Health resources provided: [facility] [address] [place], [place] [phone] ; [facility] [address], [place] [address] ; [facility] Mental [facility] [address] [address] ; [facility] Health [place], [place] [phone] Healthcare Clinics: [facility] [address] [facility], [address] [place]. [place] ; [facility] [address] [facility] [address] [facility] [address] [place] [address]; [facility] [address] [place] [address] [phone] Counseling--Outpatient [facility] [address] [facility] [facility], [place] [address] (Specializes in in-depth psychotherapy for emotional distress: anxiety, depression, interpersonal conflicts, life transitions, childhood abuse) [facility] [address] [place] [address] (Assist with solving problem marital difficulties, separation & divorce, aging parents, & grief, chronic & terminal illness) [facility] [address] [place] [address] (Deal with loss & grief, anxiety, marital difficulties) Homebound/Mental Health Services [address], [address] [facility] [place] [address] (Provide in-home mental services to people who are incapable of leaving their homes) Organization for Needs of the Elderly Senior Service/Resource Center [address] [place] [address] [facility] 6514 [facility] Centerjennifer Concetta. [facility] [place] [address] PSYCHIATRIC OUTPATIENT SERVICES [facility] Partial Hospitalization and Intensive Outpatient Program (Managed Care and [place] Only)[address] Cristopher Munoz. [facility] [phone] [facility] Partial Hospitalization and Outpatient [id number] [facility]. [address] [place], [place] [phone] HENRRY HANSON [facility] [id number] [facility]. [address] [place], [place] [phone] [facility] Partial Hospitalization and Outpatient [id number] Empardeep Rahman Henrry Hanson, [phone] Substance Abuse resources provided included: [facility] Substance Abuse Self-Helpline ([facility]) ; CRI -HELP [address] [facility]. [place] [phone] ; [facility] Treatment [place] [address] [facility] [address] ; [facility] Rehabilitation Program [address] [facility] [address] ; [facility] [address] [facility] [phone] ; [facility] 4940 [facility] [address] ; [facility] 9[address] [facility] [phone] ; [facility] Substance Abuse Helpline([facility] ; [facility] ; [facility] [place] [facility] [place]; [facility] [place]; [facility] Recovery Henrry Hanson; [facility] [place]; [place]; [facility] Treatment [place]; [facility] [place]; Alcoholics Anonymous -SFV; Zt-Vclh-Dqqblcy ; Marijuana Anonymous -SFV; Narcotics Anonymous www.na.org; HOT SHOWERS: [facility] [employer] Rrktbsu1487 Tamika Coole Food distributionRudnick/Hale [facility] [place] [address] [facility] [id number] [place] [facility] Food distributionDevonshire/[place] [address] [facility]ra[facility] Showers [address] [facility] Food distributionRidgeview Le Sueur Medical [place] [address] [facility] [address] [place] [address] [facility] [id number] Royal Food distributionRoyal/[place] [address] ThursdayMymichigan Medical Center [facility] [id number] [facility] Food Critical access hospital/[place] [address] FOOD PANTRIES: Center [address] [place] [address] [employer] [address] [place] [address] [employer] [address] [place] [address] Loaves and Fishes II 7309 [facility] [place] [address] [facility] Food Pantry-[address] [place] [facility] [address] [place] [address] [facility] 11367 [facility] [place] [address] [place] 7722 [place] [address] [place] Hunger Relief of [place] [address] [facility] [place] [address] [facility] 8755 [place] [address] [facility] [address] [place] [address] M F 9am -12 noon [phone] M Th10am 2 pm Fri 10 am 12 noon [phone] Wed1 3 pm Sat1 3:30 pm [phone] M, W 10 am 12:30 pm [phone] M, F7:30 11 am T, F9 11 am [phone] MTh, 10am1:30pm Sun 9 am 12 noon [phone] Tues45:30 pm [phone] Fri8 10 am [phone] Wed 4 pm Sign up begins 12:30 pm [phone] Thurs2 3 pm [phone]
[2022-05-22 16:00] VITALS: BP 106/66
[2022-05-22] MEDS: APIXABAN 2.5 MG TABLET PO SCH (16:25)
--- NOTE | 2022-05-22 18:33 | NUR ---
MS RN CLOSING NOTES PATIENT RESTING IN BED. DID NOT C/O PAIN/DISCOMFORT. A/O X3-4. ON ROOM AIR, BREATHING EVEN AND UNLABORED, NO ACUTE SIGN OF DISTRESS. IV ACCESS ON RFA G#20 SL, INTACT, NO SIGNS OF INFILTRATION. VEIN MAPPING ON THE LOWER EXTREMITY DONE TODAY. PT STARTED ON CARDIAC DIET. NEEDS ATTENDED. SAFETY MEASURES IN PLACE: BED LOCKED AND AT LOWEST POSITION, RAILS UP X2, CALL FERRIS WITHIN REACH. WILL ENDORSE MATI TO FITTER/WELDER NURSE.
--- NOTE | 2022-05-22 19:29 | NUR ---
MS RN OPENING NOTE RECEIVED PATIENT IN BED, WITH HOB ELEVATED, ALERT AND ORIENTED X4. ABLE TO COMMUNICATE NEEDS WITH THE STAFFS.AFEBRILE AND NOT IN ANY FORM OF ACUTE DISTRESS. BREATHING EVEN AND NON LABORED. NOTED WITH NIKOLSKI. NO C/O PAIN OR DISCOMFORT AT THIS TIME. WITH IV ACCESS ON RFA 20G-SL. SAFETY MEASURES IN PLACE. KEPT BED IN LOCKED AND IN LOW POSITION. SIDE RAILS UP X2. ADVISED TO USE THE CALL LIGHT WHEN IN NEED OF ASSISTANCE.
[2022-05-22 20:00] VITALS: BP 113/65
--- NOTE | 2022-05-23 06:18 | NUR ---
MS RN CLOSING NOTE PATIENT IN BED, ASLEEP BUT EASY TO AROUSE AND RESPONDS TO VERBAL AND TACTILE STIMULI. ABLE TO COMMUNICATE NEEDS WITH THE STAFFS.AFEBRILE AND NOT IN ANY FORM OF ACUTE DISTRESS. BREATHING EVEN AND NON LABORED. NOTED WITH PRAIRIE BAND. NO C/O PAIN OR DISCOMFORT THROUGHOUT THE SHIFT. WITH IV ACCESS ON RFA 20G-SL. ENCOURAGED TO TURN AND REPOSITION EVERY 2 HOURS AND TOLERATED TO PROMOTE PROPER CIRCULATION AND COMFORT. SAFETY MEASURES IN PLACE. KEPT BED IN LOCKED AND IN LOW POSITION. SIDE RAILS UP X2. ADVISED TO USE THE CALL LIGHT WHEN IN NEED OF ASSISTANCE. ALL NURSING NEEDS ATTENDED. ENDORSED TO INCOMING SHIFT FOR CONTINUITY OF CARE.
[2022-05-23 06:21] LABS: CARBON DIOXIDE 31 mmol/L (21-32); CHLORIDE 99 mmol/L (98-107); CREATININE 0.9 mg/dL (0.6-1.3); GLUCOSE 97 mg/dL (74-106); POTASSIUM 3.5 mmol/L (3.5-5.1); SODIUM SERUM 134 mmol/L (136-145); UREA NITROGEN, BLOOD 24 mg/dL (7-18)
--- NOTE | 2022-05-23 07:25 | NUR ---
MS RN OPENING NOTES PT RECEIVED IN BED AWAKE IN NO ACUTE SIGN OF DISTRESS. A/O X3-4. ABLE TO MAKE NEEDS KNOWN, DENIES PAIN OR ANY DISCOMFORT AT THIS TIME. ON ROOM AIR, BREATHING EVEN AND UNLABORED. IV ACCESSES ON RFA G#20 SL, INTACT AND PATENT. SAFETY MEASURES IN PLACE: BED LOCKED AND AT LOWEST POSITION, RAILS UP X2, CALL FERRIS WITHIN REACH. WILL CONTINUE TO MONITOR PT.
[2022-05-23 08:00] VITALS: BP 120/70
[2022-05-23] MEDS: ENSURE ENLIVE 237 ML LIQUID (VANILLA) PO SCH ×2 (08:10→12:05)
[2022-05-23] MEDS: CHOLECALCIFEROL 1,000 UNIT TABLET (VIT D3) PO SCH (08:10)
[2022-05-23] MEDS: PANTOPRAZOLE 40 MG TABLET.DR PO SCH (08:11)
[2022-05-23] MEDS: LISINOPRIL (20MG) 20 MG TABLET PO SCH (08:11)
[2022-05-23] MEDS: APIXABAN 2.5 MG TABLET PO SCH (08:12)
[2022-05-23] MEDS ORDERED: LISI20TA30 PO (11:16)
[2022-05-23] MEDS ORDERED: CLOP75TA15 PO (11:18)
[2022-05-23] MEDS ORDERED: ASPI-1169 PO (11:18)
--- NOTE | 2022-05-23 15:20 | NUR ---
RN NOTES PT FOR TRANSFER TO [facility] THIS AFTERNOON. CALLED AND REPORT GIVEN TO SHAINA, NOLAN AND VERBALIZED UNDERSTANDING. ALSO INFORMED PT'S SON SOLEDAD MANZO VIA TELEPHONE.
[2022-05-23 16:00] VITALS: BP 124/77
--- NOTE | 2022-05-23 16:45 | NUR ---
RN DISCHARGED NOTES PT DISCHARGED TO [facility] IN STABLE CONDITION. A/O X4. ABLE TO MAKE NEEDS KNOWN. V/S TAKEN, STABLE AND RECORDED. PHOTOS OF SKIN ISSUES TAKEN AND FILED ON HIS CHART. ALL BELONGINGS ACCOUNTED FOR AND PT SIGNED BELONGING LIST. IV ACCESS ON RIGHT FA G#2O REMOVED WITH NO ACTIVE BLEEDING NOTED, DRY DRESSING APPLIED AT SITE. CALLED AND REPORT GIVEN TO NOLAN MERRITT EARLIER. REPORT AND EXIT FOLDER HANDED TO EMT'S. PT LEFT UNIT @ 1640 VIA GURNEY ACCOMPANIED BY 3 EMT'S FROM [facility]. MD AND CHARGE NURSE AWARE OF DISCHARGE.
== END 2022-05-23 16:40 | DRG 299 ==
LOC: ER 11:03 → TELE 16:01 → MED 05-20 21:52 → ICU 05-21 16:20 → MED 05-21 23:20 → TELE 05-21 23:34 → MED 05-22 00:19
PROVIDERS: ADMIT Student in an Organized Health Care Education/Training Program; ATTEND Nurse Practitioner Acute Care
PROC: B41DYZZ Fluoroscopy of Aorta and Bilateral Lower Extremity Arteries using Other Contrast (ICD-10-PCS; principal; 2022-05-21)
DX: I70.221 Atherosclerosis of native arteries of extremities with rest pain, right leg (principal); J15.9 Unspecified bacterial pneumonia; N17.0 Acute kidney failure with tubular necrosis; I70.92 Chronic total occlusion of artery of the extremities; E44.0 Moderate protein-calorie malnutrition; Z68.1 Body mass index [BMI] 19.9 or less, adult; E87.20 Acidosis, unspecified; J90 Pleural effusion, not elsewhere classified; Z91.81 History of falling; Z20.822 Contact with and (suspected) exposure to COVID-19; Z87.891 Personal history of nicotine dependence; F10.11 Alcohol abuse, in remission; I10 Essential (primary) hypertension; I71.43 Infrarenal abdominal aortic aneurysm, without rupture; I70.0 Atherosclerosis of aorta; Z66 Do not resuscitate; R63.4 Abnormal weight loss; E87.6 Hypokalemia; E83.42 Hypomagnesemia; D64.9 Anemia, unspecified; E78.5 Hyperlipidemia, unspecified; E88.09 Other disorders of plasma-protein metabolism, not elsewhere classified; E83.39 Other disorders of phosphorus metabolism; J43.9 Emphysema, unspecified; R62.7 Adult failure to thrive; Z86.19 Personal history of other infectious and parasitic diseases; S90.122A Contusion of left lesser toe(s) without damage to nail, initial encounter; S90.121A Contusion of right lesser toe(s) without damage to nail, initial encounter; X58.XXXA Exposure to other specified factors, initial encounter; Y92.9 Unspecified place or not applicable; B02.9 Zoster without complications; R23.0 Cyanosis
CPT/HCPCS: 36246; 36415; 70450-TC; 71045-TC; 75625; 78582; 80048-TC; 80053-TC; 80061-TC; 80076-TC; 80202-TC; 81001; 82140-TC; 82728-TC; 82962-TC; 83540-TC; 83605-TC; 83735-TC; 84100-TC; 84439-TC; 84443-TC; 84484-TC; 85025-TC; 85378-TC; 85730-TC; 86803; 87040-TC; 87081-TC; 87086-TC; 87806; 90715; 93307-TC; 93970-TC; 97110-TC; 97112-TC; 97116-TC; 97530-TC; A9540; A9567; C1769; C1887; C1894; C9803; G0378; G0480; G0500; J0692; J1644; J2250; J3010; J3370; J3475; J3490; J7030; J7040; J7050; J7060; Q9967

== ENCOUNTER 2022-06-11 12:19 | Inpatient (IN) | payer MEDICARE ==
[~2022-06-11] VITALS: Ht 180.3 cm; Wt 49.9 kg
[~2022-06-11 12:19] MED LIST: ACET-868 PO; ALBU18HF2 IH; ASPI-1169 PO; CHOL100043 PO; CLOP75TA15 PO; LISI1TAB55 PO; LISI20TA30 PO
--- NOTE | 2022-06-11 12:33 | NUR ---
/PA AT BEDSIDE FOR EVAL
--- NOTE | 2022-06-11 12:48 | NUR ---
COVID SWAB COLLECTED AND SENT TO LAB
--- NOTE | 2022-06-11 12:50 | NUR ---
MOVE SHEET SUBMITTED.
--- NOTE | 2022-06-11 12:58 | NUR ---
TECH AT BEDSIDE FOR EKG
[2022-06-11] MEDS ORDERED: VANCOMYCIN 1 GM in IV D5W 250 ML IV ONE (13:00)
[2022-06-11] MEDS ORDERED: IV NS 0.9% 1,000 ML BAG IV ONE (13:00)
[2022-06-11] MEDS ORDERED: PIPERACILLIN /TAZOBACTAM 3.375 G in IV D5W 50 ML IV ONE (13:00)
--- NOTE | 2022-06-11 13:01 | NUR ---
DIRECTOR OF PUBLIC SAFETY AT BEDSIDE FOR XRAY
[2022-06-11] MEDS ORDERED: ALLA266C2 TP (13:13)
[2022-06-11] MEDS ORDERED: POVI30LI TP (13:13)
[2022-06-11] MEDS ORDERED: ZINC1CAP2 PO (13:13)
[2022-06-11] MEDS ORDERED: ASCO-352 PO (13:13)
[2022-06-11] MEDS ORDERED: ACET-868 PO (13:13)
[2022-06-11] MEDS ORDERED: LISI20TA30 PO (13:13)
[2022-06-11] MEDS ORDERED: BISA10SU11 RC (13:13)
[2022-06-11] MEDS ORDERED: MULT-447 PO (13:13)
[2022-06-11] MEDS ORDERED: NA P133E RC (13:13)
[2022-06-11] MEDS ORDERED: MAGN400O6 PO (13:13)
[2022-06-11] MEDS ORDERED: ASPI-1169 PO (13:13)
[2022-06-11] MEDS ORDERED: HONE44PA TP (13:13)
[2022-06-11] MEDS ORDERED: CLOP75TA15 PO (13:13)
[2022-06-11] MEDS ORDERED: ACET-2605 PO (13:13)
--- NOTE | 2022-06-11 13:22 | NUR ---
RFA #20; PHLEB AT BEDSIDE FOR BLOOD DRAW
[2022-06-11 13:38] LABS: BASOPHILS % (AUTO) 0.5 % (0.0-2.0); EOSINOPHILS % (AUTO) 1.4 % (0.0-6.0); HEMATOCRIT 29 % (39-51); HEMOGLOBIN 9.7 g/dL (13.5-17.5); LYMPHOCYTES % (AUTO) 36.7 % (20.0-44.0); MEAN CORPUSCULAR HGB CONC 33 g/dl (31.0-36.0); MEAN CORPUSCULAR VOLUME 93 fL (80-96); MONOCYTES # (AUTO) 0.5 K/uL (0.1-1.30); MONOCYTES % (AUTO) 9.5 % (2.0-12.0); NEUTROPHILS # (AUTO) 2.8 K/uL (1.8-8.9); NEUTROPHILS % (AUTO) 51.9 % (43.0-81.0); PLATELET COUNT (AUTO) 448 K/uL (150-450); RED BLOOD CELL COUNT(AUTO) 3.16 MIL/uL (4.5-6.0); WHITE BLOOD COUNT (AUTO) 5.4 K/uL (4.3-11.0)
[2022-06-11 13:47] LABS: CARBON DIOXIDE 28 mmol/L (21-32); CHLORIDE 106 mmol/L (98-107); CREATININE 0.8 mg/dL (0.6-1.3); GLUCOSE 87 mg/dL (74-106); POTASSIUM 3.4 mmol/L (3.5-5.1); SODIUM SERUM 139 mmol/L (136-145); UREA NITROGEN, BLOOD 21 mg/dL (7-18)
[2022-06-11 13:54] LABS: ALANINE AMINOTRANSFERASE 17 U/L (12-78); ALBUMIN 1.8 g/dL (3.4-5.0); ALKALINE PHOSPHATASE 59 U/L (46-116); ASPARTATE AMINOTRANSFERASE 23 U/L (15-37); BILIRUBIN,DIRECT 0.2 mg/dL (0.0-0.2); BILIRUBIN,TOTAL 0.5 mg/dL (0.2-1.0); TOTAL PROTEIN, SERUM 6.1 g/dL (6.4-8.2)
--- NOTE | 2022-06-11 14:27 | NUR ---
[facility] CALLED OUTSIDE BARREL LATHE OPERATOR PAGED.
--- NOTE | 2022-06-11 15:00 | NUR ---
[facility] CALLED CAREER DEVELOPMENT COORDINATOR/TEACHER PAGED.
--- NOTE | 2022-06-11 15:10 | NUR ---
TECH AT BEDSIDE FOR XRAY
--- NOTE | 2022-06-11 15:35 | NUR ---
[facility] CALLED POST MANAGER PAGED.
--- NOTE | 2022-06-11 15:50 | NUR ---
DR CUNNINGHAM SPEAKING W/ DR TURNER
--- NOTE | 2022-06-11 16:00 | NUR ---
GOT BED ASSIGNMENT 115-1 ADMITTING INFORMED
--- NOTE | 2022-06-11 16:05 | NUR ---
PT REPORT GIVEN TO SARIKA SMITH
[2022-06-11 16:20] VITALS: BP 138/94
[2022-06-11] MEDS ORDERED: ACETAMINOPHEN 325 MG TABLET PO PRN (17:00)
[2022-06-11] MEDS ORDERED: ONDANSETRON HCL/PF 4 MG/2 ML VIAL IVP PRN (17:00)
[2022-06-11] MEDS ORDERED: BISACODYL SUPP (10 MG) 10 MG/SUPP.RECT SUPP.RECT RC PRN (17:00)
[2022-06-11] MEDS: ENOXAPARIN SODIUM 40 MG/0.4 ML DISP.SYRIN SQ SCH (17:00)
[2022-06-11] MEDS ORDERED: MAGNESIUM HYDROXIDE 30 ML UDC PO PRN (17:00)
[2022-06-11] MEDS ORDERED: Z GUARD REMEDY 4 OZ OINT TP PRN (17:00)
[2022-06-11] MEDS ORDERED: MAG HYDROX/AL HYDROX/SIMETH 30 ML UDC PO PRN (17:00)
[2022-06-11] MEDS ORDERED: HYDROCODONE/APAP 5/325MG TABLET PO PRN (17:00)
--- NOTE | 2022-06-11 17:00 | NUR ---
RN NOTE 1700 [place] NOT ADMIN PATIENT HAS NOT ARRIVED TO UNIT
[2022-06-11] MEDS ORDERED: ALBUTEROL FS 2.5 MG/3 ML VIAL.NEB NEB PRN (17:30)
--- NOTE | 2022-06-11 17:47 | NUR ---
PT TRANSFERRED TO 115 VIA [place]. WARM HAND OFF GIVEN TO SARIKA SMITH.
--- NOTE | 2022-06-11 18:54 | NUR ---
RN CLOSING NOTE PATIENT RESTING IN BED. A/OX3 ON ROOM AIR WITH NO CURRENT SIGNS OF RESPIRATORY DISTRESS. IV ACCESS ON RIGHT FOREARM 20G SL. SAFETY MEASURES PER HOSPITAL POLICY IN PLACE. WILL ENDORSE TO NIGHT NURSE FOR MATI.
--- NOTE | 2022-06-11 19:00 | NUR ---
MS RN OPENING NOTE PATIENT IS LYING IN BED. HE IS ALERT AND ORIENTED, AO X 4. HE IS HARD OF HEARING. PATIENT IS ON RA, TOLERATED WELL. NO S/S OF DISTRESS OR SOB. IV ACCESS IS AT HIS R FA, #20G, SL. FLUSHED THE IV ACCESS WELL WITH 10 CC NS; IV SITE IS PATENT AND INTACT. PATIENT HAS MULTIPLE WOUNDS OR SKIN ISSUES, PLEASE SEE NURSING ASSESSMENT. SKIN/ WOUND PICTURES WERE TAKE BY THE ADMITTING DAY SHIFT NURSE AND BEING PUT INSIDE OF THE PATIENT'S CHART. SAFETY MEASURES ARE IN PLACE: BED IN LOWEST AND LOCKED POSITION; SIDE RAILS UP X 2; BED ALARM IS SET. WILL CONTINUE MONITORING THE PATIENT'S CONDITION AND PROVIDE THE CARE PATIENT NEEDS.
[2022-06-11 20:00] VITALS: BP 145/80
[2022-06-12] VITALS: BP 139/86
[2022-06-12] MEDS: VANCOMYCIN HCL 0.75 GM in IV D5W 250 ML IV SCH ×2 (00:21→12:16)
[2022-06-12 04:00] VITALS: BP 146/88
[2022-06-12 06:11] LABS: BASOPHILS % (AUTO) 0.6 % (0.0-2.0); EOSINOPHILS % (AUTO) 2.4 % (0.0-6.0); HEMATOCRIT 30 % (39-51); LYMPHOCYTES # (AUTO) 2.3 K/uL (0.8-4.8); MEAN CORPUSCULAR HGB CONC 34 g/dl (31.0-36.0); MEAN CORPUSCULAR VOLUME 92 fL (80-96); MONOCYTES # (AUTO) 0.5 K/uL (0.1-1.30); MONOCYTES % (AUTO) 8.4 % (2.0-12.0); NEUTROPHILS # (AUTO) 2.9 K/uL (1.8-8.9); NEUTROPHILS % (AUTO) 49.6 % (43.0-81.0); PLATELET COUNT (AUTO) 473 K/uL (150-450); RED BLOOD CELL COUNT(AUTO) 3.25 MIL/uL (4.5-6.0); WHITE BLOOD COUNT (AUTO) 5.8 K/uL (4.3-11.0)
[2022-06-12 06:23] LABS: CALCIUM, SERUM 7.8 mg/dL (8.5-10.1); CARBON DIOXIDE 27 mmol/L (21-32); CHLORIDE 105 mmol/L (98-107); CREATININE 0.7 mg/dL (0.6-1.3); GLUCOSE 92 mg/dL (74-106); MAGNESIUM 1.9 mg/dL (1.8-2.4); PHOSPHORUS 2.7 mg/dL (2.5-4.9); POTASSIUM 3.7 mmol/L (3.5-5.1); SODIUM SERUM 138 mmol/L (136-145); UREA NITROGEN, BLOOD 16 mg/dL (7-18)
--- NOTE | 2022-06-12 07:09 | NUR ---
MS RN CLOSING NOTE PATIENT IS SLEEPING IN BED; EASILY BEING AROUSED. HE IS ALERT AND ORIENTED, AO X 4. HE IS HARD OF HEARING. PATIENT IS ON RA, TOLERATED WELL. NO S/S OF DISTRESS OR SOB. IV ACCESS IS AT HIS R FA, #20G, SL. IV SITE IS PATENT AND INTACT. SAFETY MEASURES ARE IN PLACE: BED IN LOWEST AND LOCKED POSITION; SIDE RAILS UP X 2; BED ALARM IS SET. CALL LIGHT AND TABLE ARE WITHIN REACH. WILL ENDORSE DAY SHIFT NURSE FOR CONTINUING PATIENT CARE.
--- NOTE | 2022-06-12 07:10 | NUR ---
RN OPENING NOTE PATIENT IS IN BED, ALERT AND ORIENTED X 4, HAS A PROBLEM HEARING. PATIENT IS ON RA, TOLERATED WELL. NO S/S OF DISTRESS OR SOB. IV ACCESS IS AT HIS R FA, #20G, SL. FLUSHED THE IV ACCESS WELL WITH 10 CC NS; IV SITE IS PATENT AND INTACT. PATIENT HAS MULTIPLE SKIN BREAKDOWN, WOUND CARE REQUESTED. SAFETY MEASURES ARE IN PLACE: BED IN LOWEST AND LOCKED POSITION; SIDE RAILS UP X 2; BED ALARM IS SET. WILL CONTINUE MONITORING THE PATIENT'S CONDITION AND PROVIDE THE CARE PATIENT NEEDS.
[2022-06-12] MEDS: PANTOPRAZOLE 40 MG TABLET.DR PO SCH (07:54)
[2022-06-12] MEDS: ASPIRIN 81 MG TAB.CHEW PO SCH (08:41)
[2022-06-12] MEDS: CLOPIDOGREL BISULFATE 75 MG TABLET PO SCH (08:41)
[2022-06-12] MEDS: ASCORBIC ACID 500 MG TABLET PO SCH (08:41)
[2022-06-12] MEDS: ZINC SULFATE 220 MG CAPSULE PO SCH (08:41)
[2022-06-12] MEDS: CHOLECALCIFEROL 1,000 UNIT TABLET (VIT D3) PO SCH (08:41)
[2022-06-12] MEDS: LISINOPRIL (20MG) 20 MG TABLET PO SCH (08:42)
--- NOTE | 2022-06-12 11:12 | NUR ---
WOUND CARE CONSULT: PT PRESENTS EXTREMELY THIN AND BONY WITH SCARRING TO RT UPPER BACK AND DRY LESIONS/CRUSTS TO RT ANTERIOR CHEST, SACRAL UNSTAGEABLE PRESSURE ULCER, LEFT HIP STAGE 3 ULCER WITH DRY NECROTIC AREAS TO RT HEEL, FOOT AND TOES, ALL PRESENT ON ADMISSION. DR MADRID AND DR SCHMID CALLED FOR DPM AND SURGICAL CONSULTS. DISCUSSED SKIN PROTECTION WITH NURSING STAFF. PT REFUSES CONDOM CATH. IN AGREEMENT WITH PLAN OF CARE.
[2022-06-12 12:00] VITALS: BP 121/72
--- NOTE | 2022-06-12 13:20 | NUR ---
DOCTOR CONSTANTINO ORDERED NM MYOCARDIAL STRESS TEST, CALENDER INSPECTOR NOTIFIED, CONSENT SIGNED BY PT.
[2022-06-12] MEDS: ENOXAPARIN SODIUM 40 MG/0.4 ML DISP.SYRIN SQ SCH (16:15)
--- NOTE | 2022-06-12 19:12 | NUR ---
RN CLOSING NOTE PATIENT IS IN BED, ALERT AND ORIENTED, ABLE TO COMMUNICATE FREELY, BUT HAS A HEARING LOSS, NO C/O PAIN OR DISCOMFORT THROUGHOUT THE SHIFT. MEDICATED ORDERED. ENCOURAGED TO TURN AND REPOSITION EVERY 2 HOURS AND TOLERATED TO PROMOTE PROPER CIRCULATION AND COMFORT, ABLE TO USE URINAL ON HIS OWN. IV SITE RIGHT UA INTACT, FLUSHES WELL. SAFETY MEASURES IN PLACE. ADVISED TO USE THE CALL LIGHT WHEN IN NEED OF ASSISTANCE. ALL NURSING NEEDS ATTENDED. ENDORSED TO INCOMING SHIFT FOR CONTINUITY OF CARE.
--- NOTE | 2022-06-12 19:47 | NUR ---
RN Opening Notes Received pt sitting in bed, watching TV. AOx4, able to make needs known. On RA and tolerating well. No SOB noted. No s/sx of respiratory distress noted. IV access in RFA #20G. IV is intact, patent, and flushing well. Safety precautions in place: bed in lowest, locked position, siderails upX2, and brakes on. Table and call light within reach. All needs met at this time.
[2022-06-12 20:00] VITALS: BP 142/79
[2022-06-13] MEDS: VANCOMYCIN HCL 0.75 GM in IV D5W 250 ML IV SCH ×2 (01:38→12:22)
[2022-06-13 04:00] VITALS: BP 127/74
[2022-06-13 05:50] LABS: BASOPHILS % (AUTO) 0.7 % (0.0-2.0); EOSINOPHILS % (AUTO) 1.5 % (0.0-6.0); HEMATOCRIT 31 % (39-51); HEMOGLOBIN 10.2 g/dL (13.5-17.5); LYMPHOCYTES % (AUTO) 31.3 % (20.0-44.0); MEAN CORPUSCULAR HGB CONC 33 g/dl (31.0-36.0); MEAN CORPUSCULAR VOLUME 92 fL (80-96); MONOCYTES # (AUTO) 0.5 K/uL (0.1-1.30); MONOCYTES % (AUTO) 7.9 % (2.0-12.0); NEUTROPHILS # (AUTO) 3.8 K/uL (1.8-8.9); NEUTROPHILS % (AUTO) 58.6 % (43.0-81.0); PLATELET COUNT (AUTO) 516 K/uL (150-450); RED BLOOD CELL COUNT(AUTO) 3.35 MIL/uL (4.5-6.0); WHITE BLOOD COUNT (AUTO) 6.4 K/uL (4.3-11.0)
[2022-06-13 06:12] LABS: ALBUMIN 1.9 g/dL (3.4-5.0); BILIRUBIN,TOTAL 0.4 mg/dL (0.2-1.0); CALCIUM, SERUM 8.1 mg/dL (8.5-10.1); CREATININE 0.7 mg/dL (0.6-1.3); MAGNESIUM 1.8 mg/dL (1.8-2.4); PHOSPHORUS 2.3 mg/dL (2.5-4.9); POTASSIUM 3.8 mmol/L (3.5-5.1); TOTAL PROTEIN, SERUM 6.7 g/dL (6.4-8.2)
--- NOTE | 2022-06-13 07:18 | NUR ---
RN Closing Notes Pt in bed, asleep, awakens to verbal stimuli. AOx4, able to make needs known. On RA and tolerating well. No SOB noted. No s/sx of respiratory distress noted. IV access in RFA #20G. IV is intact, patent, and flushing well. All orders carried out. All needs met. Pt kept clean and dry. Safety precautions in place: bed in lowest, locked position, siderails upX2, and brakes on. Table and call light within reach. Will endorse to oncoming shift for MATI.
--- NOTE | 2022-06-13 07:30 | NUR ---
Opening Notes Received pt resting in bed. AOx4, able to make needs known. On RA and tolerating well. No SOB noted. No s/sx of respiratory distress noted. IV access in RFA #20G. IV is intact, patent, and flushing well. Safety precautions in place: bed in lowest, locked position, siderails upX2, and brakes on. Table and call light within reach. All needs met at this time.
--- NOTE | 2022-06-13 09:48 | NUR ---
GREGORY IVERSON SPOKE TO DR. VERMA (HULL INSPECTOR) ITS OK TO DO ON THURSDAY.06/15/22,LUDY MYOCARDIAL STRESS EXAM.
--- NOTE | 2022-06-13 09:51 | NUR ---
F/U WITH NM REGARDING MYOCARDIAL TEST TODAY, PER ARMIDAGREGORY THE NM TECH IS NOT HERE TODAY, AND GREGORY ASKED DR GRIMALDO CARDIO IF ITS OKAY TO DO IT ON THURSDAY. INFORMED DR. TURNER AND CHARGE NURSE
[2022-06-13] MEDS: ASPIRIN 81 MG TAB.CHEW PO SCH (10:09)
[2022-06-13] MEDS: ASCORBIC ACID 500 MG TABLET PO SCH (10:09)
[2022-06-13] MEDS: CHOLECALCIFEROL 1,000 UNIT TABLET (VIT D3) PO SCH (10:09)
[2022-06-13] MEDS: CLOPIDOGREL BISULFATE 75 MG TABLET PO SCH (10:09)
[2022-06-13] MEDS: LISINOPRIL (20MG) 20 MG TABLET PO SCH (10:10)
[2022-06-13] MEDS: PANTOPRAZOLE 40 MG TABLET.DR PO SCH (10:10)
[2022-06-13] MEDS: ZINC SULFATE 220 MG CAPSULE PO SCH (10:10)
[2022-06-13 16:00] VITALS: BP 101/54
[2022-06-13] MEDS ORDERED: K PHOS NEUTRAL 250 MG TABLET PO ONE (16:00)
[2022-06-13] MEDS: ENOXAPARIN SODIUM 40 MG/0.4 ML DISP.SYRIN SQ SCH (16:25)
[2022-06-13] MEDS: ENSURE ENLIVE 237 ML LIQUID (VANILLA) PO SCH (16:25)
--- NOTE | 2022-06-13 18:48 | NUR ---
PATIENT IS RESTING IN BED COMFORTABLY WATCHING TV, NO SIGNS OF IN DISTRESS,NO C.O PAIN, UNLABORED BREATHING ON ROOM AIR, LEFT WRIST IV LINE 20G, SALINE LOCK, SAFETY MEASURES APPLIED, BED IN LOW POSITION,SIDE RAILS UPX2,CALL LIGHT WITHIN REACH.
--- NOTE | 2022-06-13 19:30 | NUR ---
RN OPENING NOTE RECEIVED PATIENT IN BED, ALERT AND ORIENTED X 4, HARD OF HEARING. PATIENT IS ON ROOM AIR, TOLERATING ROOM AIR WELL. NO S/S OF DISTRESS OR SOB. IV ACCESS TO RIGHT FA, #20G, SL, FLUSHING WELL, AND INTACT. SAFETY MEASURES IN PLACE: BED IN LOWEST AND LOCKED POSITION; SIDE RAILS UP X 2; BED ALARM ON. WILL CONTINUE MONITORING THE PATIENT THROUGHOUT SHIFT.
[2022-06-14] VITALS: BP 102/64
--- NOTE | 2022-06-14 | NUR ---
RN NOTE PT'S IV TO RIGHT WRIST IS DISLODGED. NEW IV ACCESS INSERTED TO RIGHT FA # G20 . IV INTACT, AND FLUSHING WELL.
[2022-06-14] MEDS: VANCOMYCIN HCL 0.75 GM in IV D5W 250 ML IV SCH ×2 (00:44→13:22)
[2022-06-14 04:00] VITALS: BP 137/74
--- NOTE | 2022-06-14 06:47 | NUR ---
RN CLOSING NOTE LEFT PATIENT IN BED, ALERT AND ORIENTED X 4, HARD OF HEARING. PATIENT IS ON ROOM AIR, TOLERATING ROOM AIR WELL. NO S/S OF DISTRESS OR SOB. IV ACCESS TO RIGHT FA, #20G, SL, FLUSHING WELL, AND INTACT. SAFETY MEASURES IN PLACE: BED IN LOWEST AND LOCKED POSITION; SIDE RAILS UP X 2; BED ALARM ON. WILL ENDORSE PT TO MORNING SHIFT NURSE FOR MATI.
[2022-06-14 06:56] LABS: BASOPHILS % (AUTO) 0.5 % (0.0-2.0); EOSINOPHILS % (AUTO) 1.2 % (0.0-6.0); HEMATOCRIT 30 % (39-51); HEMOGLOBIN 10.1 g/dL (13.5-17.5); LYMPHOCYTES # (AUTO) 1.7 K/uL (0.8-4.8); LYMPHOCYTES % (AUTO) 30.7 % (20.0-44.0); MEAN CORPUSCULAR HGB CONC 33 g/dl (31.0-36.0); MEAN CORPUSCULAR VOLUME 93 fL (80-96); MONOCYTES # (AUTO) 0.5 K/uL (0.1-1.30); MONOCYTES % (AUTO) 8.5 % (2.0-12.0); NEUTROPHILS # (AUTO) 3.3 K/uL (1.8-8.9); NEUTROPHILS % (AUTO) 59.1 % (43.0-81.0); PLATELET COUNT (AUTO) 485 K/uL (150-450); RED BLOOD CELL COUNT(AUTO) 3.29 MIL/uL (4.5-6.0); WHITE BLOOD COUNT (AUTO) 5.6 K/uL (4.3-11.0)
[2022-06-14 07:11] LABS: ALBUMIN 1.8 g/dL (3.4-5.0); BILIRUBIN,TOTAL 0.3 mg/dL (0.2-1.0); CALCIUM, SERUM 7.8 mg/dL (8.5-10.1); CREATININE 0.8 mg/dL (0.6-1.3); MAGNESIUM 1.9 mg/dL (1.8-2.4); PHOSPHORUS 2.8 mg/dL (2.5-4.9); TOTAL PROTEIN, SERUM 6.5 g/dL (6.4-8.2)
[2022-06-14 08:00] VITALS: BP 135/75
[2022-06-14] MEDS: ASCORBIC ACID 500 MG TABLET PO SCH (08:16)
[2022-06-14] MEDS: ASPIRIN 81 MG TAB.CHEW PO SCH (08:16)
[2022-06-14] MEDS: ZINC SULFATE 220 MG CAPSULE PO SCH (08:16)
[2022-06-14] MEDS: CHOLECALCIFEROL 1,000 UNIT TABLET (VIT D3) PO SCH (08:16)
[2022-06-14] MEDS: CLOPIDOGREL BISULFATE 75 MG TABLET PO SCH (08:16)
[2022-06-14] MEDS: PANTOPRAZOLE 40 MG TABLET.DR PO SCH (08:16)
[2022-06-14] MEDS: LISINOPRIL (20MG) 20 MG TABLET PO SCH (08:17)
[2022-06-14] MEDS: ENSURE ENLIVE 237 ML LIQUID (VANILLA) PO SCH ×2 (08:17→17:17)
--- NOTE | 2022-06-14 09:30 | NUR ---
THE MEDICATION 0930 AM LEXISCAN IS FOR STRESS LORI, PHARMACY NOTIFIED THEY SAID JUST LEAVE IT LIKE THAT.
[2022-06-14] MEDS ORDERED: REGADENOSON 0.4 MG/5 ML DISP.SYRIN IVP ONE ×2 (10:00→11:00)
[2022-06-14] MEDS: POTASSIUM CHLORIDE 20 MEQ TAB.PRT.SR PO SCH ×3 (11:08→13:25)
--- NOTE | 2022-06-14 13:07 | NUR ---
dave with ana taylor [facility] [place],schedule for thursday.
--- NOTE | 2022-06-14 13:08 | NUR ---
per dr. edna gongora to do it thursday and keep pt npo post midnite thursday ,nursing iraida blanco aware.
[2022-06-14 16:00] VITALS: BP 121/67
[2022-06-14] MEDS: ENOXAPARIN SODIUM 40 MG/0.4 ML DISP.SYRIN SQ SCH (17:24)
--- NOTE | 2022-06-14 18:52 | NUR ---
RN CLOSING NOTE PATIENT IN BED, ALERT AND ORIENTED X 4, HARD OF HEARING RIGHT EAR. PATIENT IS ON ROOM AIR O2 SAT 98% TOLERATING ROOM AIR WELL. NO S/S OF DISTRESS OR SOB. IV ACCESS TO RIGHT FA, #20G, SL, FLUSHING WELL,AND INTACT TKO 10CC/HR. SAFETY MEASURES IN PLACE: BED IN LOWEST AND LOCKED POSITION; SIDE RAILS UP X 2; BED ALARM ON. WILL ENDORSE PT TO THE PM SHIFT NURSE FOR MATI. PATIENT MUST BE NPO FROM THURSDAY MIDNIGHT.
[2022-06-14 20:00] VITALS: BP 159/94
[2022-06-14] MEDS: THERAHONEY GEL 1.5 OZ TUBE TP SCH (23:35)
[2022-06-15] MEDS: VANCOMYCIN HCL 0.75 GM in IV D5W 250 ML IV SCH ×2 (01:20→12:16)
[2022-06-15 04:00] VITALS: BP 147/95
[2022-06-15 06:25] LABS: CALCIUM, SERUM 7.8 mg/dL (8.5-10.1); CREATININE 0.7 mg/dL (0.6-1.3); POTASSIUM 3.6 mmol/L (3.5-5.1)
--- NOTE | 2022-06-15 07:54 | NUR ---
MS RN NOTE PATIENT IN BED,RESTING COMFORTABLY IN BED . PATIENT IS ON ROOM AIR O2 SAT 98% TOLERATING ROOM AIR WELL. NO S/S OF DISTRESS OR SOB. IV ACCESS TO RIGHT FA, #20G, SL, FLUSHING WELL, SAFETY MEASURES IN PLACE: BED IN LOWEST AND LOCKED POSITION; SIDE RAILS UP X 2; BED ALARM ON. WILL CONT TO MONITOR
[2022-06-15 08:00] VITALS: BP 146/83
[2022-06-15] MEDS: ASPIRIN 81 MG TAB.CHEW PO SCH (08:43)
[2022-06-15] MEDS: ENSURE ENLIVE 237 ML LIQUID (VANILLA) PO SCH ×2 (08:43→17:54)
[2022-06-15] MEDS: CHOLECALCIFEROL 1,000 UNIT TABLET (VIT D3) PO SCH (08:43)
[2022-06-15] MEDS: ASCORBIC ACID 500 MG TABLET PO SCH (08:43)
[2022-06-15] MEDS: CLOPIDOGREL BISULFATE 75 MG TABLET PO SCH (08:43)
[2022-06-15] MEDS: LISINOPRIL (20MG) 20 MG TABLET PO SCH (08:43)
[2022-06-15] MEDS: PANTOPRAZOLE 40 MG TABLET.DR PO SCH (08:43)
[2022-06-15] MEDS: ZINC SULFATE 220 MG CAPSULE PO SCH (08:43)
[2022-06-15] MEDS: THERAHONEY GEL 1.5 OZ TUBE TP SCH (08:49)
--- NOTE | 2022-06-15 10:50 | NUR ---
MS RN NOTE RT FA HL IV SITE IS NOT FLUSHING WELL ,UNABLE TO REINSERT HL NEW ONE, IS HARD STICK PER DR YUE HAMPTON TO PLACE MID LINE ,MID LINE NURSE AT BEDSIDE, LT MARTINEZ MID LINE INSERTED ,WILL CONT TO MONITOR Addendum: 06/15/22 at 1852 by TRACI UNGER RN LLT UPPER ARM MIDLINE IN PLACED
--- NOTE | 2022-06-15 12:00 | NUR ---
rn note having lunch ,able to eat self ,not in distress
--- NOTE | 2022-06-15 15:02 | NUR ---
television actor note rounds made turn reposition , keep clean dry, call light within reach
--- NOTE | 2022-06-15 15:25 | NUR ---
ms rn note strangely refused to do tx on rt foot explained of importance of tx ,still refused offered x2 , seen by lavelle ramos id will f\u
[2022-06-15 16:00] VITALS: BP 118/59
[2022-06-15] MEDS: ENOXAPARIN SODIUM 40 MG/0.4 ML DISP.SYRIN SQ SCH (17:12)
--- NOTE | 2022-06-15 18:28 | NUR ---
ms rn note patient in bed , alert oriented , on having dinner , able to eat self , on ra ,no sob noted at this time, lt fa mid line in place and flushed well , bed in lowest and clocked position , all needs attended,will cont to monitor closely
--- NOTE | 2022-06-15 19:30 | NUR ---
MS RN OPENING NOTE RECEIVED PT IN BED, A/O X 4, ON ROOM AIR WITH O2 SAT 99%, TOLERATING WELL. NO S/SX OF DISTRESS OR SOB NOTED. IV ACCESS ON BRAYDEN MIDLINE, SL, FLUSHING WELL. SAFETY MEASURES IN PLACE: BED LOCKED AND IN LOWEST POSITION, SIDE RAILS UP X 2, BED ALARM ON, CALL LIGHT WITHIN REACH. WILL CONTINUE TO MONITOR.
[2022-06-15 20:00] VITALS: BP 123/69
[2022-06-16] MEDS: VANCOMYCIN HCL 0.75 GM in IV D5W 250 ML IV SCH ×2 (01:06→14:14)
[2022-06-16 04:00] VITALS: BP 155/73
[2022-06-16 06:27] LABS: CALCIUM, SERUM 8.1 mg/dL (8.5-10.1); CREATININE 0.8 mg/dL (0.6-1.3); POTASSIUM 3.6 mmol/L (3.5-5.1)
--- NOTE | 2022-06-16 06:30 | NUR ---
MS RN CLOSING NOTE PT IN BED, A/O X 4, ON ROOM AIR WITH O2 SAT 99%, TOLERATING WELL. NO S/SX OF DISTRESS OR SOB NOTED. IV ACCESS ON BRAYDEN MIDLINE, SL, FLUSHING WELL. SAFETY MEASURES IN PLACE: BED LOCKED AND IN LOWEST POSITION, SIDE RAILS UP X 2, BED ALARM ON, CALL LIGHT WITHIN REACH. WILL ENDORSE TO ONCOMING NURSE FOR MATI.
--- NOTE | 2022-06-16 07:15 | NUR ---
TELEPHONE CLERK NOTES Received ot awake in bed AOx4. No complaints of pain or discomfort at this time. Pt is on RA and tolerating it well. IV access on BRAYDEN ML patent and intact. PT has been NPO since midnight for a stress test this morning. HOB elevated to pts comfort. Siderails up at all times x2. Bed at its lowest setting and locked. Call light within reach. Will continue to monitor.
[2022-06-16] MEDS: PANTOPRAZOLE 40 MG TABLET.DR PO SCH ×2 (07:30→10:35)
--- NOTE | 2022-06-16 07:45 | NUR ---
PHP SOFTWARE ENGINEER NOTES Pt picked up to go to stress test procedure.
[2022-06-16] MEDS: ENSURE ENLIVE 237 ML LIQUID (VANILLA) PO SCH ×2 (08:00→16:30)
[2022-06-16] MEDS: ASPIRIN 81 MG TAB.CHEW PO SCH (10:35)
[2022-06-16] MEDS: ASCORBIC ACID 500 MG TABLET PO SCH (10:35)
[2022-06-16] MEDS: CHOLECALCIFEROL 1,000 UNIT TABLET (VIT D3) PO SCH (10:36)
[2022-06-16] MEDS: CLOPIDOGREL BISULFATE 75 MG TABLET PO SCH (10:36)
[2022-06-16] MEDS: ZINC SULFATE 220 MG CAPSULE PO SCH (10:36)
[2022-06-16] MEDS: LISINOPRIL (20MG) 20 MG TABLET PO SCH (10:36)
[2022-06-16] MEDS: THERAHONEY GEL 1.5 OZ TUBE TP SCH (10:37)
[2022-06-16 16:00] VITALS: BP 151/77
[2022-06-16] MEDS: ENOXAPARIN SODIUM 40 MG/0.4 ML DISP.SYRIN SQ SCH (16:33)
--- NOTE | 2022-06-16 18:50 | NUR ---
RIVET SORTER NOTES All due meds and tx given as orderd. Pt tolerated everything well. All need attended to.
[2022-06-17 00:07] VITALS: BP 133/73
[2022-06-17] MEDS: VANCOMYCIN HCL 0.75 GM in IV D5W 250 ML IV SCH ×2 (01:14→12:06)
[2022-06-17] MEDS: PANTOPRAZOLE 40 MG TABLET.DR PO SCH (06:23)
--- NOTE | 2022-06-17 07:20 | NUR ---
LAST SCOURER OPENING NOTES Received pt awake in bed AOx4. No complaints of pain or discomfort at this time. Pt is on RA and tolerating it well. IV access on BRAYDEN ML patent and intact. HOB elevated to pts comfort. Siderails up at all times x2. Bed at its lowest setting and locked. Call light within reach. Will continue to monitor.
[2022-06-17 07:27] LABS: CALCIUM, SERUM 8.2 mg/dL (8.5-10.1); CREATININE 0.8 mg/dL (0.6-1.3); POTASSIUM 3.2 mmol/L (3.5-5.1)
[2022-06-17 08:00] VITALS: BP 135/78
[2022-06-17] MEDS: CLOPIDOGREL BISULFATE 75 MG TABLET PO SCH (08:21)
[2022-06-17] MEDS: ASPIRIN 81 MG TAB.CHEW PO SCH (08:21)
[2022-06-17] MEDS: ZINC SULFATE 220 MG CAPSULE PO SCH (08:21)
[2022-06-17] MEDS: LISINOPRIL (20MG) 20 MG TABLET PO SCH (08:21)
[2022-06-17] MEDS: THERAHONEY GEL 1.5 OZ TUBE TP SCH (08:22)
[2022-06-17] MEDS: CHOLECALCIFEROL 1,000 UNIT TABLET (VIT D3) PO SCH (08:22)
[2022-06-17] MEDS: ENSURE ENLIVE 237 ML LIQUID (VANILLA) PO SCH ×2 (08:22→17:06)
[2022-06-17] MEDS: ASCORBIC ACID 500 MG TABLET PO SCH (08:22)
[2022-06-17] MEDS: POTASSIUM CHLORIDE 20 MEQ TAB.PRT.SR PO SCH ×2 (12:09→13:14)
--- NOTE | 2022-06-17 13:24 | NUR ---
CLINICAL DOCUMENTATION NURSE NOTES Relayed results of stress test to Salvador Kim and stated that he will coordinate with Dr. Rondon.
[2022-06-17 16:00] VITALS: BP 102/67
[2022-06-17] MEDS: ENOXAPARIN SODIUM 40 MG/0.4 ML DISP.SYRIN SQ SCH (17:06)
[2022-06-17 18:03] LABS: BASOPHILS # (AUTO) 0.1 K/uL (0.0-0.2); BASOPHILS % (AUTO) 0.9 % (0.0-2.0); EOSINOPHILS % (AUTO) 1.9 % (0.0-6.0); HEMATOCRIT 28 % (39-51); HEMOGLOBIN 9.2 g/dL (13.5-17.5); LYMPHOCYTES # (AUTO) 2.4 K/uL (0.8-4.8); LYMPHOCYTES % (AUTO) 33.1 % (20.0-44.0); MEAN CORPUSCULAR HGB CONC 32 g/dl (31.0-36.0); MEAN CORPUSCULAR VOLUME 93 fL (80-96); MONOCYTES # (AUTO) 0.7 K/uL (0.1-1.30); MONOCYTES % (AUTO) 9.8 % (2.0-12.0); NEUTROPHILS # (AUTO) 3.9 K/uL (1.8-8.9); NEUTROPHILS % (AUTO) 54.3 % (43.0-81.0); PLATELET COUNT (AUTO) 361 K/uL (150-450); RED BLOOD CELL COUNT(AUTO) 3.04 MIL/uL (4.5-6.0); WHITE BLOOD COUNT (AUTO) 7.1 K/uL (4.3-11.0)
--- NOTE | 2022-06-17 18:06 | NUR ---
spoke with blood bank c/o [place] pt. need 3 units prbc type and cross for OR use in am surgery.blood bank will call back if there is any issues.
[2022-06-17 18:14] LABS: CALCIUM, SERUM 7.9 mg/dL (8.5-10.1); CREATININE 0.7 mg/dL (0.6-1.3); POTASSIUM 4.2 mmol/L (3.5-5.1)
--- NOTE | 2022-06-17 18:45 | NUR ---
CABINET WORKER CLOSING NOTES All due meds and tx given as ordered. Pt tolerated everything well. All needs attended to. Pt is still on RA and tolerating it well. IV access on BRAYDEN midline patent and intact. HOB elevated to pts comfort. Siderails up at all times x2. Call light within reach. Will endorse to oncoming nurse.
--- NOTE | 2022-06-17 19:40 | NUR ---
MS RN OPENING NOTE RECEIVED PT AWAKE IN BED. A/O X4 AND ABLE TO MAKE NEEDS KNOWN. PT STABLE ON ROOM AIR. NO SOB OR S/S OF RESPIRATORY DISTRESS. BREATHING EVEN AND UNLABORED. IV ACCESS BRAYDEN ML, INTACT AND PATENT. SAFETY PRECAUTIONS IN PLACE. BED IN LOWEST LOCKED POSITION, HOB ELEVATED, SIDE RAILS UP X2, AND CALL LIGHT AND TABLE WITHIN REACH. ALL NEEDS MET AT THIS TIME.
[2022-06-18] VITALS (12 sets, daily range): BP systolic 104–176; BP diastolic 57–101
[2022-06-18] MEDS: VANCOMYCIN HCL 0.75 GM in IV D5W 250 ML IV SCH ×2 (01:00→18:08)
--- NOTE | 2022-06-18 06:51 | NUR ---
MS RN CLOSING NOTE PT AWAKE IN BED. A/O X4 AND ABLE TO MAKE NEEDS KNOWN. PT STABLE ON ROOM AIR. NO SOB OR S/S OF RESPIRATORY DISTRESS. BREATHING EVEN AND UNLABORED. IV ACCESS BRAYDEN ML, INTACT AND PATENT. KEPT NPO AFTER MIDNIGHT. WOUND TREATMENT DONE ORDERED. KEPT CLEAN AND DRY. SAFETY PRECAUTIONS IN PLACE AT ALL TIMES. BED IN LOWEST LOCKED POSITION, HOB ELEVATED, SIDE RAILS UP X2, AND CALL LIGHT AND TABLE WITHIN REACH. ALL NEEDS MET AT THIS TIME AND WILL ENDORSE TO ONCOMING NURSE FOR MATI.
[2022-06-18 07:04] LABS: BASOPHILS % (AUTO) 0.6 % (0.0-2.0); EOSINOPHILS % (AUTO) 1.5 % (0.0-6.0); HEMATOCRIT 29 % (39-51); HEMOGLOBIN 9.7 g/dL (13.5-17.5); LYMPHOCYTES % (AUTO) 35.5 % (20.0-44.0); MEAN CORPUSCULAR HGB CONC 33 g/dl (31.0-36.0); MEAN CORPUSCULAR VOLUME 92 fL (80-96); MONOCYTES # (AUTO) 0.6 K/uL (0.1-1.30); MONOCYTES % (AUTO) 10.2 % (2.0-12.0); NEUTROPHILS % (AUTO) 52.2 % (43.0-81.0); PLATELET COUNT (AUTO) 471 K/uL (150-450); RED BLOOD CELL COUNT(AUTO) 3.18 MIL/uL (4.5-6.0); WHITE BLOOD COUNT (AUTO) 5.7 K/uL (4.3-11.0)
[2022-06-18] MEDS: PANTOPRAZOLE 40 MG TABLET.DR PO SCH (07:30)
[2022-06-18 07:38] LABS: CALCIUM, SERUM 8.2 mg/dL (8.5-10.1); CARBON DIOXIDE 33 mmol/L (21-32); CHLORIDE 101 mmol/L (98-107); CREATININE 0.8 mg/dL (0.6-1.3); GLUCOSE 99 mg/dL (74-106); MAGNESIUM 1.8 mg/dL (1.8-2.4); PHOSPHORUS 3.3 mg/dL (2.5-4.9); POTASSIUM 4.2 mmol/L (3.5-5.1); SODIUM SERUM 137 mmol/L (136-145); UREA NITROGEN, BLOOD 17 mg/dL (7-18)
--- NOTE | 2022-06-18 07:43 | NUR ---
RN NOTE SPOKE TO SARIKA SEGAL FROM SURGERY TO CONFIRM PATIENT WILL BE TRANSPORTED FOR SURGERY AT 1100 TODAY. [facility] PATIENT HAS BEEN NPO SINCE MIDNIGHT.
[2022-06-18] MEDS ORDERED: ANESTHESIA TRAY IN PYXIS 1 EA TRAY MC ONE ×2 (07:48→16:32)
[2022-06-18] MEDS: ENSURE ENLIVE 237 ML LIQUID (VANILLA) PO SCH ×2 (07:57→17:00)
[2022-06-18] MEDS ORDERED: CALCIUM CHLORIDE 1,000 MG/10 ML DISP.SYRIN IV ONE ×2 (08:30→17:30)
[2022-06-18] MEDS ORDERED: PANTOPRAZOLE 40 MG VIAL IV ONE (08:30)
[2022-06-18] MEDS ORDERED: NTG 50 MG/D5W250 ML BOTTL 250 ML IV PRN (08:30)
[2022-06-18] MEDS: CLOPIDOGREL BISULFATE 75 MG TABLET PO SCH (08:37)
[2022-06-18] MEDS: ASPIRIN 81 MG TAB.CHEW PO SCH (08:39)
[2022-06-18] MEDS: CHOLECALCIFEROL 1,000 UNIT TABLET (VIT D3) PO SCH ×2 (08:47→09:00)
[2022-06-18] MEDS: ASCORBIC ACID 500 MG TABLET PO SCH ×2 (08:47→09:00)
[2022-06-18] MEDS: ZINC SULFATE 220 MG CAPSULE PO SCH ×2 (08:47→09:00)
[2022-06-18] MEDS: LISINOPRIL (20MG) 20 MG TABLET PO SCH ×2 (08:50→09:00)
[2022-06-18] MEDS: THERAHONEY GEL 1.5 OZ TUBE TP SCH (08:53)
[2022-06-18] MEDS ORDERED: hydrALAZINE HCL IV 20 MG VIAL IV PRN (09:00)
--- NOTE | 2022-06-18 09:00 | NUR ---
RN NOTE RECEIVED ORDER FROM DR BHATT HYDRALAZINE 10MG IV Q4HR PRN SBP GREATER THAN 160. ORDERS PLACED
--- NOTE | 2022-06-18 11:15 | NUR ---
RN NOTE PATIENT LEFT VIA BED FOR SURGERY AT THIS TIME ACCOMPANIED BY SARIKA KEYES. WILL RETURN AT 1600.
[2022-06-18] MEDS ORDERED: LIDOCAINE 1% INJ 50 ML MDV IJ ONE (11:41)
[2022-06-18] MEDS ORDERED: LIDOCAINE 1%-EPI 1:100,000 20 ML VIAL ONE (11:42)
[2022-06-18] MEDS ORDERED: GELATIN SPONGE,ABSORBABLE 1 SPONGE SPONGE TP ONE ×2 (11:43→15:04)
[2022-06-18] MEDS ORDERED: FENTANYL PF 100MCG/2ML AMPUL ONE (11:45)
[2022-06-18] MEDS ORDERED: KETAMINE HCL (500MG/10ML) 50 MG/ML VIAL ONE (11:45)
[2022-06-18] MEDS ORDERED: HYDROMORPHONE INJ 2 MG/ML DISP.SYRIN ONE (11:46)
[2022-06-18] MEDS ORDERED: ROCURONIUM BROMIDE 50 MG/5 ML ONE (11:46)
[2022-06-18] MEDS ORDERED: HEMOSTATIC MATRIX 8 ML 1 EACH PAD MC ONE (11:47)
[2022-06-18] MEDS ORDERED: BUPIVACAINE 0.5 % PF 150 MG/30 ML VIAL ONE (11:47)
[2022-06-18] MEDS ORDERED: POLYMYXIN B SULFATE 500,000 UNITS ONE (11:48)
[2022-06-18] MEDS ORDERED: CELLULOSE,OXIDIZED 1 EACH EACH MC ONE (11:48)
[2022-06-18] MEDS ORDERED: ALBUMIN 5% 25 GM in PREMIX 1 EA IV ONE ×2 (12:00→17:30)
--- NOTE | 2022-06-18 13:15 | NUR ---
RN NOTE 1300 DOSE FOR VANCO NOT GIVEN DUE TO PATIENT STILL IN SURGERY.
[2022-06-18] MEDS ORDERED: MGSO4/D5W 100 ML IV ONE (14:00)
[2022-06-18] MEDS ORDERED: protAMINE SULFATE 10 MG/ML VIAL IV ONE (14:38)
[2022-06-18] MEDS ORDERED: BUPIVACAINE 0.25% 75 MG/30 ML VIAL ONE (14:45)
[2022-06-18] MEDS ORDERED: THROMBIN (BOVINE) 5,000 UNITS VIAL TP ONE (15:00)
--- NOTE | 2022-06-18 15:55 | NUR ---
RN NOTE PATIENT TRANSFERRED FROM [facility] UNIT TO 258 ICU POST SURGERY. REPORT GIVEN TO SARIKA LAZCANO. ALL BELONGINGS ACCOUNTED FOR, LEFT PATIENT'S PHONE AT BEDSIDE IN ZIPLOCK WITH HIS NAME ON IT. ONCOMING NURSE WAS AT BEDSIDE WHEN PATIENT ARRIVED TO ROOM.
[2022-06-18 16:11] LABS: BASOPHILS % (AUTO) 0.4 % (0.0-2.0); HEMATOCRIT 29 % (39-51); HEMOGLOBIN 9.5 g/dL (13.5-17.5); LYMPHOCYTES # (AUTO) 1.9 K/uL (0.8-4.8); LYMPHOCYTES % (AUTO) 28.9 % (20.0-44.0); MEAN CORPUSCULAR HGB CONC 33 g/dl (31.0-36.0); MEAN CORPUSCULAR VOLUME 92 fL (80-96); MONOCYTES # (AUTO) 0.6 K/uL (0.1-1.30); MONOCYTES % (AUTO) 9.6 % (2.0-12.0); NEUTROPHILS % (AUTO) 60.1 % (43.0-81.0); PLATELET COUNT (AUTO) 383 K/uL (150-450); RED BLOOD CELL COUNT(AUTO) 3.19 MIL/uL (4.5-6.0); WHITE BLOOD COUNT (AUTO) 6.7 K/uL (4.3-11.0)
[2022-06-18 16:54] LABS: CALCIUM, SERUM 8.5 mg/dL (8.5-10.1); CREATININE 0.8 mg/dL (0.6-1.3); POTASSIUM 3.7 mmol/L (3.5-5.1)
--- NOTE | 2022-06-18 17:00 | NUR ---
PT RECEIVED FROM RECOVERY ROOM NURSE..S/P RIGHT FEMORAL POPLITEAL/TIBIAL BYPASS..PT HAS 3 INCISIONS TO RIGHT LEG..DSG TO RIGHT LEG CLEAN DRY AND INTACT..JOSÉ LUIS TO RIGHT GROIN INCISION DRAINING SMALL AMT BLOODY DRAINAGE..JOSÉ LUIS TO RIGHT LOWER LEG DRAINING SCANT BLOODY DRAINAGE..TOP RIGHT FOOT RED..PT ORIENTED TO NAME..PT IN NO ACUTE RESP DISTRESS..SIMPLE MASK 10L IN USE..SAT 100%..PT BP LOW..SEE FLOW SHEET..
[2022-06-18] MEDS ORDERED: PHENYLEPHRINE 50 MG in IV NS 0.9% 245 ML IV PRN (17:30)
[2022-06-18] MEDS: IV NS 0.9% 1,000 ML IV PRN (17:45)
--- NOTE | 2022-06-18 18:15 | NUR ---
DR HERNANDEZ CALLED WITH UPDATE ON PT STATUS..NEW ORDERS GIVEN..ONE UNIT PRBC STARTED..NO BLOOD REACTION NOTED..
--- NOTE | 2022-06-18 20:47 | NUR ---
RN NOTE BLOOD TRANSFUSION COMPLETED AT THIS TIME WITH POST-TRANSFUSION VS WITHIN NORMAL LIMITS
[2022-06-18] MEDS: ENOXAPARIN SODIUM 40 MG/0.4 ML DISP.SYRIN SQ SCH (21:00)
[2022-06-18] MEDS ORDERED: CALCIUM CHLORIDE 1,000 MG/10 ML DISP.SYRIN ONE (21:09)
[2022-06-18] MEDS ORDERED: ALBUMIN 5% 250 ML IV ONE (21:10)
--- NOTE | 2022-06-18 22:00 | NUR ---
Patient AA/OX3 S/P Femoral Popliteal Bypass Graft.Dressing clean dry and intact.JOSÉ LUIS drain to R groin and R leg draining sanguineous output.VS stable.SR.Respiration even and unlabored with 10L NRB Mask saturation 100%.NPO X meds.IVF infusing well.Patient unable to urinate with urinal.Bladder distende.Bladder scan reading 999 ml. aware with order to insert FC.Fr# 16 Franco Cath inserted without difficulty drained 1000 with few min.Turned and repositioned to comfort.Safety precation maintained.Call light at bedside.
[2022-06-18 23:57] LABS: HEMOGLOBIN 9.6 g/dL (13.5-17.5)
[2022-06-19] VITALS (25 sets, daily range): BP systolic 96–146; BP diastolic 52–81
[2022-06-19] MEDS: VANCOMYCIN HCL 0.75 GM in IV D5W 250 ML IV SCH ×2 (00:45→13:56)
[2022-06-19 03:30] LABS: BASOPHILS % (AUTO) 0.5 % (0.0-2.0); EOSINOPHILS % (AUTO) 1.4 % (0.0-6.0); HEMATOCRIT 28 % (39-51); HEMOGLOBIN 9.2 g/dL (13.5-17.5); LYMPHOCYTES # (AUTO) 1.4 K/uL (0.8-4.8); LYMPHOCYTES % (AUTO) 22.9 % (20.0-44.0); MEAN CORPUSCULAR HGB CONC 33 g/dl (31.0-36.0); MEAN CORPUSCULAR VOLUME 91 fL (80-96); MONOCYTES # (AUTO) 0.5 K/uL (0.1-1.30); MONOCYTES % (AUTO) 8.3 % (2.0-12.0); NEUTROPHILS % (AUTO) 66.9 % (43.0-81.0); PLATELET COUNT (AUTO) 322 K/uL (150-450); RED BLOOD CELL COUNT(AUTO) 3.06 MIL/uL (4.5-6.0)
[2022-06-19 03:49] LABS: CALCIUM, SERUM 8.8 mg/dL (8.5-10.1); CARBON DIOXIDE 30 mmol/L (21-32); CHLORIDE 105 mmol/L (98-107); GLUCOSE 152 mg/dL (74-106); MAGNESIUM 1.9 mg/dL (1.8-2.4); PHOSPHORUS 4.9 mg/dL (2.5-4.9); POTASSIUM 4.1 mmol/L (3.5-5.1); SODIUM SERUM 140 mmol/L (136-145); UREA NITROGEN, BLOOD 18 mg/dL (7-18)
[2022-06-19] MEDS: IV NS 0.9% 1,000 ML IV PRN ×2 (06:13→19:51)
--- NOTE | 2022-06-19 07:29 | NUR ---
Patient resting in no acute distress.VS remains stable.SR.Franco Cath output 1400ml during the shift. R groin JOSÉ LUIS drain 95ml.Right leg drain 65 ml.BMx1.AM care done.Turned and repositioned to comfort. Denies pain only when turning. Report given to day shift for MATI.
--- NOTE | 2022-06-19 07:40 | NUR ---
ICU/RN PT IS RESTING .V/S STABLE,AFEBRILE.NO PAIN REPORTED AT THIS TIME. IV-ML INFUSING WITH NS AT 75 ML/HR. F/C DRAINING WITH YELLOW URINE.SACRAL WOUND COVERED WITH DRESSING. RIGHT LEG POST OP HAS 2 JOSÉ LUIS DRAINING WITH BLOODY DISCHARGE. RIGHT FOOT GANGRENE.
[2022-06-19] MEDS: ENSURE ENLIVE 237 ML LIQUID (VANILLA) PO SCH ×2 (08:54→16:59)
--- NOTE | 2022-06-19 09:00 | NUR ---
ICU/RN DUE MEDS ARE GIVEN ORDERED.LABS REVIEW.MD AWARE.OK TO START DIET.PT EATS 100% FROM HIS MEAL TRAY.
[2022-06-19] MEDS: LISINOPRIL (20MG) 20 MG TABLET PO SCH (09:04)
[2022-06-19] MEDS: ASPIRIN 81 MG TAB.CHEW PO SCH (09:04)
[2022-06-19] MEDS: CHOLECALCIFEROL 1,000 UNIT TABLET (VIT D3) PO SCH (09:04)
[2022-06-19] MEDS: THERAHONEY GEL 1.5 OZ TUBE TP SCH (09:05)
[2022-06-19] MEDS: ZINC SULFATE 220 MG CAPSULE PO SCH (09:05)
[2022-06-19] MEDS: CLOPIDOGREL BISULFATE 75 MG TABLET PO SCH (09:05)
[2022-06-19] MEDS: ASCORBIC ACID 500 MG TABLET PO SCH (09:05)
[2022-06-19] MEDS: PANTOPRAZOLE 40 MG TABLET.DR PO SCH (09:05)
--- NOTE | 2022-06-19 17:00 | NUR ---
ICU/ROAD SIGN INSTALLER DRESSING DONE ORDERED.HEEL PROTECTORS ON.PM CARE PROVIDED.DUE MEDS ARE GIVEN ORDERED.DR RICHMOND SEEN THE PT OK TO TRANSFER TO TELE UNIT.WAITING FOR THE BED.JOSÉ LUIS TOTAL DRAINAGE 180 ML.
[2022-06-19] MEDS: ENOXAPARIN SODIUM 40 MG/0.4 ML DISP.SYRIN SQ SCH (17:01)
--- NOTE | 2022-06-19 19:20 | NUR ---
RN OPENING NOTES RECEIVED PATIENT ON BED, AWAKE AND VERBALLY RESPONSIVE, A/O X 3. ON NASAL CANULA @ 3LPM SATING AT 97%, FEBRILE- 100.3 FAHRENHEIT, NO S/S OF DISTRESS NOTED. NOTED WITH BRAYDEN MID LINE, FLUSHED WITH NS. NO S/S OF INFILTRATION NOTED. RUNNING WITH NS @ 75 ML/HR. NOTED RIGHT GROIN JOSÉ LUIS DRAIN WITH REDDISH OUTPUT, RIGHT LOWER LEG JOSÉ LUIS DRAIN WITH REDDISH DRAINAGE. S/P RIGHT FEMORAL TO TIBIAL BYPASS, NO ACTIVE BLEEDING NOTED. BUI CATHETER PATENT DRAINING CLEAR YELLOW URINE VIA GRAVITY. ALL SAFETY PRECAUTION PROVIDED. BED IN LOWEST POSITION, LOCKED. CALL LIGHT WITH IN REACH.
--- NOTE | 2022-06-19 19:41 | NUR ---
RN NOTES PATIENT NOTED WITH TEMP- 100.3 FAHRENHEIT, COOLING MEASURE PROVIDED. ACETAMINOPHEN 650MG GIVEN. CONTINUE TO MONITOR.
--- NOTE | 2022-06-19 20:10 | NUR ---
RN NOTES REPORT GIVEN TO FELIBERTO KHAN RN.
--- NOTE | 2022-06-19 20:17 | NUR ---
RN NOTES PATIENT TRANSFERRED TO ROOM 324-2, VIA ACLS PROTOCOL IN STABLE CONDITION.
--- NOTE | 2022-06-19 20:30 | NUR ---
CARBON PRINTER OPENING NOTES RECEIVED PATIENT AWAKE, A/OX3-4 WITH EPISODES OF FORGETFULNESS. ON NASAL CANNULA 2LPM, TOLERATING WELL. NO SIGNS OF DISTRESS NOTED. NOT IN PAIN AT THIS TIME. WITH BUI CATHETER ASSESSED THE SITE; NO REDNESS SKIN IS INTACT NOTED. WITH JPRATT ON RIGHT GROIN AND RIGHT LEG. IV ACCESS RIGHT ARM SALINE LOCK AND LEFT UPPER ARM WITH NS INFUSING @75ML/HR IV SITE INFUSING WELL/FLUSHING WELL, INTACT. SAFETY MEASURES IN PLACED; BED LOCKED AND IN LOWEST POSITION, CALL LIGHT AND SIDE TABLE WITHIN PATIENTS REACH, SIDE RAILS UP X3.
[2022-06-20 00:09] VITALS: BP 110/65
[2022-06-20] MEDS: VANCOMYCIN HCL 0.75 GM in IV D5W 250 ML IV SCH ×2 (00:55→13:10)
[2022-06-20] MEDS: IV NS 0.9% 1,000 ML IV PRN ×2 (04:40→15:34)
--- NOTE | 2022-06-20 06:46 | NUR ---
324-2 MERCHANT SEAMAN CLOSING NOTES PATIENT IN BED AWAKE, A/OX3-4 WITH EPISODES OF FORGETFULNESS. ON NASAL CANNULA 2LPM, TOLERATING WELL. NO SIGNS OF DISTRESS NOTED. NOT IN PAIN AT THIS TIME. WITH BUI CATHETER WITH OUTPUT OF 60CC. CATHETER SITE IS ASSESSED; NO REDNESS SKIN IS INTACT NOTED. WITH JPRAT ON RIGHT GROIN OUTPUT OF 150CC AND RIGHT LEG OUTPUT OF 100CC. IV ACCESS RIGHT ARM SALINE LOCK AND LEFT UPPER ARM WITH NS INFUSING @75ML/HR IV SITE INFUSING WELL/FLUSHING WELL, INTACT. ALL DUE MEDICATIONS ARE GIVEN. ALL NEEDS ARE MET. SAFETY MEASURES IN PLACED; BED LOCKED AND IN LOWEST POSITION, CALL LIGHT AND SIDE TABLE WITHIN PATIENTS REACH, SIDE RAILS UP X3. WILL ENDORSE TO NEXT SHIFT FOR CONTINUITY OF CARE.
[2022-06-20 07:13] LABS: CALCIUM, SERUM 7.9 mg/dL (8.5-10.1); CREATININE 0.8 mg/dL (0.6-1.3); POTASSIUM 3.9 mmol/L (3.5-5.1)
--- NOTE | 2022-06-20 07:49 | NUR ---
SAFETY TECHNICIAN OPENING NOTES: RECEIVED PATIENT IN BED AWAKE, A/OX3-4 WITH EPISODES OF FORGETFULNESS. ON NASAL CANNULA 2LPM, TOLERATING WELL. NO SIGNS OF DISTRESS NOTED. DENIES PAIN AT THIS TIME. BUI CATH DRAINING CLEAR YELLOW URINE NOTED. WITH JOSÉ LUIS DRAIN ON RIGHT GROIN AND RIGHT LEG, SCANT AMOUNT OF SEROSANGUINEOUS FLUID NOTED. IV ACCESS RIGHT ARM SALINE LOCK AND LEFT UPPER ARM WITH NS INFUSING @75ML/HR. SAFETY MEASURES IN PLACE; BED LOCKED AND IN LOWEST POSITION, CALL LIGHT AND SIDE TABLE WITHIN PATIENTS REACH, SIDE RAILS UP X3. WILL CONT WITH PLAN OF CARE DURING SHIFT. Addendum: 06/20/22 at 0754 by MIRTHA GATES RN TELE MONITOR READS SR= [id number]
[2022-06-20 08:00] VITALS: BP 152/72
[2022-06-20] MEDS: ASCORBIC ACID 500 MG TABLET PO SCH (09:05)
[2022-06-20] MEDS: ASPIRIN 81 MG TAB.CHEW PO SCH (09:05)
[2022-06-20] MEDS: PANTOPRAZOLE 40 MG TABLET.DR PO SCH (09:05)
[2022-06-20] MEDS: CHOLECALCIFEROL 1,000 UNIT TABLET (VIT D3) PO SCH (09:05)
[2022-06-20] MEDS: ZINC SULFATE 220 MG CAPSULE PO SCH (09:06)
[2022-06-20] MEDS: CLOPIDOGREL BISULFATE 75 MG TABLET PO SCH (09:06)
[2022-06-20] MEDS: LISINOPRIL (20MG) 20 MG TABLET PO SCH (09:06)
[2022-06-20] MEDS: THERAHONEY GEL 1.5 OZ TUBE TP SCH (09:14)
[2022-06-20] MEDS: ENSURE ENLIVE 237 ML LIQUID (VANILLA) PO SCH ×2 (09:15→16:33)
[2022-06-20 16:00] VITALS: BP 106/69
[2022-06-20] MEDS: ENOXAPARIN SODIUM 40 MG/0.4 ML DISP.SYRIN SQ SCH (16:33)
--- NOTE | 2022-06-20 16:34 | NUR ---
RN NOTES: HELD LOVENOX FOR NOW, PT'S WOUND IS OOZING WITH SCANT AMOUNT OF BLOOD, MADE FOOD SALES CLERK AWARE.
--- NOTE | 2022-06-20 18:10 | NUR ---
RN NOTES: RN CALLED MINDY, SON, REQUESTING UPDATES, LEFT MSG ON VM TO CALL BACK, PROVIDED RN NAME AND UNIT TEL #
--- NOTE | 2022-06-20 18:44 | NUR ---
MS RN NOTES: PATIENT IN BED AWAKE, A/OX3-4 WITH EPISODES OF FORGETFULNESS. ON NASAL CANNULA 2LPM, TOLERATING WELL. NO SIGNS OF DISTRESS NOTED. DENIES PAIN AT THIS TIME. BUI CATH DRAINING CLEAR YELLOW URINE, OUTPUT DURING SHIFT = 800. JOSÉ LUIS DRAINS REMOVED. IV ACCESS RIGHT FA #22, SALINE LOCK AND LEFT UPPER ARM ML WITH NS INFUSING @75ML/HR. ALL MEDS GIVEN, WOUND CARE DONE, KEPT PT CLEAN, DRY AND COMFORTABLE, NEEDS MET. SAFETY MEASURES IN PLACE; BED LOCKED AND IN LOWEST POSITION, CALL LIGHT AND SIDE TABLE WITHIN PATIENTS REACH, SIDE RAILS UP X3. WILL ENDORSE TO PM SHIFT.
--- NOTE | 2022-06-20 19:30 | NUR ---
MS KAMI INITIAL NOTES RECEIVED REPORT FROM AM NURSE AND SAW PATIENT IN BED AWAKE AND ALERT WATCHING TV AT THIS TIME. HE HAD IVF OF NS AT 75ML/HR INFUSING ON HIS LEFT UPPER ARM PATENT AND INTACT. HE ALSO HAD HEPLOCK ON HIS RIGHT ARM PATENT AND INTACT. DRESSINGS ON HIS RIGHT LOWER LEGS DRY AND INTACT. ELEVATED ON PILLOWS. HE ALSO LYING ON SPECIAL KCI MATTRESS FOR COMFORT. BED IN LOW AND LOCK IN POSITION WITH SIDE RAILS X3 UP FOR PT SAFETY. KEPT HIM WARM AND COMFORTABLE AT ALL TIMES. PLACE CALL LIGHT AT REACH. WILL CONTINUE MONITORING.
[2022-06-20 20:00] VITALS: BP 147/84
[2022-06-20] MEDS: DOXYCYCLINE HYCLATE (100 MG) 100 MG TABLET PO SCH (21:45)
--- NOTE | 2022-06-20 23:09 | NUR ---
ms mike notes checked pt he's sleeping comfortably in bed without any discomfort noted. IVF still infusing. kept him warm and comfortable at all times. will continue monitoring. place call light at reach.
[2022-06-21] MEDS: IV NS 0.9% 1,000 ML IV PRN (05:27)
[2022-06-21 07:00] VITALS: BP 142/76
[2022-06-21 07:06] LABS: BASOPHILS % (AUTO) 0.5 % (0.0-2.0); EOSINOPHILS % (AUTO) 5.2 % (0.0-6.0); HEMATOCRIT 26 % (39-51); HEMOGLOBIN 8.6 g/dL (13.5-17.5); LYMPHOCYTES # (AUTO) 1.9 K/uL (0.8-4.8); LYMPHOCYTES % (AUTO) 31.3 % (20.0-44.0); MEAN CORPUSCULAR HGB CONC 33 g/dl (31.0-36.0); MEAN CORPUSCULAR VOLUME 91 fL (80-96); MONOCYTES # (AUTO) 0.5 K/uL (0.1-1.30); MONOCYTES % (AUTO) 8.4 % (2.0-12.0); NEUTROPHILS # (AUTO) 3.4 K/uL (1.8-8.9); NEUTROPHILS % (AUTO) 54.6 % (43.0-81.0); PLATELET COUNT (AUTO) 319 K/uL (150-450); WHITE BLOOD COUNT (AUTO) 6.2 K/uL (4.3-11.0)
--- NOTE | 2022-06-21 07:12 | NUR ---
ms rustic terrazzo setter closing notes Pt remains sleeping after am care done by specialist wound care. No signs of any discomfort or any acute distress noted. IVF NS at 75ml/hr still infusing on his left forearm midline, Franco cath draining well. Stable throughout the night. Dressing dry and intact. Kept him warm and comfortable at all times. Bed in low and lock in position with side rails X3 up. place call light at reach will endorse to am nurse for continuity of care.
[2022-06-21 07:19] LABS: MAGNESIUM 1.5 mg/dL (1.8-2.4); PHOSPHORUS 2.3 mg/dL (2.5-4.9)
--- NOTE | 2022-06-21 07:52 | NUR ---
RN OPENING NOTE RECEIVED PATIENT IN BED AO x 3-4, ABLE TO RESPONDS PHYSICAL STIMULI. RESPIRATORY EVEN AND UNLABORED IN OXYGEN AT 1.5 Ls VIA NC. IN NO ACUTE DISTRESS OBSERVED. SKIN IS WARM TO TOUCH, KEEP CLEAN/DRY. KEPT ELEVATED HOB FOR ASPIRATION PRECAUTION/ENSURE AIRWAY, ALSO LOWEST BED POSITIONED. BED ALARM IS ON AT ALL THE TIME FOR SAFETY. CALL LIGHT WITHIN REACH, WILL CONTINUE TO MONITOR.
[2022-06-21] MEDS: ASPIRIN 81 MG TAB.CHEW PO SCH (08:13)
[2022-06-21] MEDS: ZINC SULFATE 220 MG CAPSULE PO SCH (08:13)
[2022-06-21] MEDS: PANTOPRAZOLE 40 MG TABLET.DR PO SCH (08:13)
[2022-06-21] MEDS: ASCORBIC ACID 500 MG TABLET PO SCH (08:13)
[2022-06-21] MEDS: CHOLECALCIFEROL 1,000 UNIT TABLET (VIT D3) PO SCH (08:13)
[2022-06-21] MEDS: LISINOPRIL (20MG) 20 MG TABLET PO SCH (08:14)
[2022-06-21] MEDS: CLOPIDOGREL BISULFATE 75 MG TABLET PO SCH (08:14)
[2022-06-21] MEDS: DOXYCYCLINE HYCLATE (100 MG) 100 MG TABLET PO SCH ×2 (08:14→20:09)
[2022-06-21] MEDS: THERAHONEY GEL 1.5 OZ TUBE TP SCH (08:15)
[2022-06-21] MEDS: ENSURE ENLIVE 237 ML LIQUID (VANILLA) PO SCH ×2 (08:19→16:06)
[2022-06-21] MEDS ORDERED: MAGNESIUM OXIDE 400 MG TABLET PO ONE ×2 (10:00)
[2022-06-21 16:00] VITALS: BP 106/57
[2022-06-21] MEDS ORDERED: K PHOS NEUTRAL 250 MG TABLET PO ONE (16:00)
[2022-06-21] MEDS: ENOXAPARIN SODIUM 40 MG/0.4 ML DISP.SYRIN SQ SCH (16:06)
--- NOTE | 2022-06-21 18:46 | NUR ---
RN CLOSING NOTE PATIENT RESTING IN BED. IN NO ACUTE DISTRESS OBSERVED. RESPIRATORY EVEN AND UNLABORED IN OXYGEN 1.5 Ls. IN NO RESPIRATORY DISTRESS OBSERVED. SKIN IS WARM TO TOUCH KEEP CLEAN/DRY. PATIENT S/P FEMORAL BYPASS AND JOSÉ LUIS DRAIN AND NO COMPLICATION OBSERVED. ENCOURAGED PATIENT TO ORAL FLUID INTAKE TOLERATED. KEPT ELEVATED HOB FOR ENSURE AIRWAY/ASPIRATION PRECAUTION, AND LOWEST BED POSITION. BED ALARM IS ON AT ALL THE TIME FOR SAFETY. CALL LIGHT WITHIN REACH, WILL ENDORSE CELL PREPARER.
--- NOTE | 2022-06-21 19:24 | NUR ---
MS RN OPENING NOTE RECEIVED PT RESTING IN BED, VERBALLY RESPONSIVE. A/O X3-4 AND ABLE TO MAKE NEEDS KNOWN. PT ON O2 @ 1.5 LPM VIA NC, TOLERATING WELL. NO SOB OR S/S OF RESPIRATORY DISTRESS. BREATHING EVEN AND UNLABORED. IV ACCESS BRAYDEN MIDLINE, INTACT AND PATENT, RUNNING NS 75 ML/HR. SAFETY PRECAUTIONS IN PLACE. BED IN LOWEST LOCKED POSITION, SIDE RAILS UP X3, AND CALL LIGHT AND TABLE WITHIN REACH. ALL NEEDS MET AT THIS TIME.
[2022-06-21 20:00] VITALS: BP 143/68
[2022-06-22 06:17] LABS: CALCIUM, SERUM 7.3 mg/dL (8.5-10.1); CREATININE 0.7 mg/dL (0.6-1.3); MAGNESIUM 1.5 mg/dL (1.8-2.4); PHOSPHORUS 2.1 mg/dL (2.5-4.9); POTASSIUM 3.4 mmol/L (3.5-5.1)
[2022-06-22] MEDS: IV NS 0.9% 1,000 ML IV PRN ×2 (06:34→16:27)
[2022-06-22 07:00] VITALS: BP 122/68
--- NOTE | 2022-06-22 07:06 | NUR ---
MS RN CLOSING NOTE PT RESTING IN BED, VERBALLY RESPONSIVE. A/O X3-4 AND ABLE TO MAKE NEEDS KNOWN. PT ON O2 @ 1.5 LPM VIA NC, TOLERATING WELL. NO SOB OR S/S OF RESPIRATORY DISTRESS. BREATHING EVEN AND UNLABORED. IV ACCESS BRAYDEN MIDLINE, INTACT AND PATENT, RUNNING NS 75 ML/HR. WITH BUI IN PLACE DRAINING URINE BY GRAVITY, DRAINED 1000 CC THIS SHIFT. ALL DUE MEDS GIVEN ORDERED. SAFETY PRECAUTIONS IN PLACE AT ALL TIMES. BED IN LOWEST LOCKED POSITION, SIDE RAILS UP X3, AND CALL LIGHT AND TABLE WITHIN REACH. ALL NEEDS MET AT THIS TIME AND WILL ENDORSE TO ONCOMING NURSE FOR MATI.
--- NOTE | 2022-06-22 08:04 | NUR ---
RN OPENING NOTE RECEIVED PATIENT AWAKE x 3-4, ABLE TO RESPONDS PHYSICAL STIMULI. RESPIRATORY EVEN AND UNLABORED IN OXYGEN AT 1.5 Ls VIA NC. IN NO ACUTE DISTRESS OBSERVED. SKIN IS WARM TO TOUCH, KEEP CLEAN/DRY. KEPT ELEVATED HOB FOR ASPIRATION PRECAUTION/ENSURE AIRWAY, ALSO LOWEST BED POSITIONED. BED ALARM IS ON AT ALL THE TIME FOR SAFETY. CALL LIGHT WITHIN REACH, WILL CONTINUE TO MONITOR.
[2022-06-22] MEDS: CLOPIDOGREL BISULFATE 75 MG TABLET PO SCH (08:26)
[2022-06-22] MEDS: PANTOPRAZOLE 40 MG TABLET.DR PO SCH (08:26)
[2022-06-22] MEDS: ASCORBIC ACID 500 MG TABLET PO SCH (08:26)
[2022-06-22] MEDS: LISINOPRIL (20MG) 20 MG TABLET PO SCH (08:26)
[2022-06-22] MEDS: ASPIRIN 81 MG TAB.CHEW PO SCH (08:26)
[2022-06-22] MEDS: ZINC SULFATE 220 MG CAPSULE PO SCH (08:26)
[2022-06-22] MEDS: DOXYCYCLINE HYCLATE (100 MG) 100 MG TABLET PO SCH ×2 (08:26→21:55)
[2022-06-22] MEDS: CHOLECALCIFEROL 1,000 UNIT TABLET (VIT D3) PO SCH (08:26)
[2022-06-22] MEDS: THERAHONEY GEL 1.5 OZ TUBE TP SCH (08:27)
[2022-06-22] MEDS: ENSURE ENLIVE 237 ML LIQUID (VANILLA) PO SCH ×2 (08:27→16:52)
[2022-06-22] MEDS ORDERED: POTASSIUM CHLORIDE 20 MEQ TAB.PRT.SR PO SCH (11:00)
[2022-06-22] MEDS ORDERED: MAGNESIUM OXIDE 400 MG TABLET PO ONE (12:30)
[2022-06-22] MEDS ORDERED: K PHOS NEUTRAL 250 MG TABLET PO ONE (15:30)
[2022-06-22 16:00] VITALS: BP 107/56
[2022-06-22] MEDS: ENOXAPARIN SODIUM 40 MG/0.4 ML DISP.SYRIN SQ SCH (16:28)
--- NOTE | 2022-06-22 18:42 | NUR ---
RN CLOSING NOTE PATIENT RESTING IN BED. IN NO ACUTE DISTRESS OBSERVED. RESPIRATORY EVEN AND UNLABORED IN OXYGEN 1.5 Ls, NO SOB OR DESATURATION NOTED. SKIN IS WARM TO TOUCH KEEP CLEAN/DRY. ENCOURAGED PATIENT TO ORAL FLUID INTAKE TOLERATED. KEPT ELEVATED HOB FOR ENSURE AIRWAY/ASPIRATION PRECAUTION, AND LOWEST BED POSITION. BED ALARM IS ON AT ALL THE TIME FOR SAFETY. CALL LIGHT WITHIN REACH, WILL ENDORSE SANDING MACHINE OPERATOR.
--- NOTE | 2022-06-22 20:07 | NUR ---
RN OPENING NOTE PATIENT ASLEEP IN BED. A/OX3. NO S/S OF DISTRESS, BREATHING WITHOUT DIFFICULTY ON 2L NC. BRAYDEN MIDLINE #18 INTACT AND PATENT W/ NS 75ML/HR; RFA #22 SL INTACT AND PATENT. SAFETY MEASURES IN PLACE: BED LOCKED AND AT LOWEST POSITION, BED AT LOW FOWLERS, RAILS UP X2, CALL FERRIS WITHIN REACH. WILL CONTINUE TO MONITOR PATIENT.
[2022-06-22 21:21] VITALS: BP 113/60
[2022-06-23 06:07] LABS: BASOPHILS % (AUTO) 0.3 % (0.0-2.0); EOSINOPHILS % (AUTO) 0.3 % (0.0-6.0); HEMATOCRIT 25 % (39-51); HEMOGLOBIN 8.1 g/dL (13.5-17.5); LYMPHOCYTES # (AUTO) 1.6 K/uL (0.8-4.8); LYMPHOCYTES % (AUTO) 33.9 % (20.0-44.0); MEAN CORPUSCULAR HGB CONC 33 g/dl (31.0-36.0); MEAN CORPUSCULAR VOLUME 92 fL (80-96); MONOCYTES # (AUTO) 0.4 K/uL (0.1-1.30); MONOCYTES % (AUTO) 8.1 % (2.0-12.0); NEUTROPHILS # (AUTO) 2.7 K/uL (1.8-8.9); NEUTROPHILS % (AUTO) 57.4 % (43.0-81.0); PLATELET COUNT (AUTO) 344 K/uL (150-450); RED BLOOD CELL COUNT(AUTO) 2.67 MIL/uL (4.5-6.0); WHITE BLOOD COUNT (AUTO) 4.8 K/uL (4.3-11.0)
--- NOTE | 2022-06-23 06:41 | NUR ---
RN CLOSING NOTE PATIENT AWAKE IN BED. A/OX3. NO S/S OF DISTRESS, BREATHING WITHOUT DIFFICULTY ON 2L NC. RFA #22 SL INTACT AND PATENT; BRAYDEN MIDLINE #18 W/ NS 75ML/HR. SAFETY MEASURES IN PLACE: BED LOCKED AND AT LOWEST POSITION, LOW FOWLERS, RAILS UP X2, CALL FERRIS WITHIN REACH. WILL ENDORSE TO NEXT SHIFT FOR MATI.
[2022-06-23 07:01] LABS: CALCIUM, SERUM 7.4 mg/dL (8.5-10.1); CREATININE 0.7 mg/dL (0.6-1.3); MAGNESIUM 1.6 mg/dL (1.8-2.4); PHOSPHORUS 2.3 mg/dL (2.5-4.9); POTASSIUM 3.7 mmol/L (3.5-5.1)
[2022-06-23] MEDS: PANTOPRAZOLE 40 MG TABLET.DR PO SCH (07:44)
[2022-06-23] MEDS: ENSURE ENLIVE 237 ML LIQUID (VANILLA) PO SCH (07:44)
--- NOTE | 2022-06-23 07:55 | NUR ---
RN OPENING NOTE- PATIENT ASLEEP IN BED. EASILY AWAKENED, A/OX3. NO S/S OF DISTRESS, BREATHING WITHOUT DIFFICULTY ON 2L NC. BRAYDEN MIDLINE #18 INTACT AND PATENT W/ NS 75ML/HR; RFA #22 SL INTACT AND PATENT. SAFETY MEASURES IN PLACE: BED LOCKED AND AT LOWEST POSITION, BED AT LOW FOWLERS, RAILS UP X2, CALL FERRIS WITHIN REACH. WILL CONTINUE TO MONITOR / ASSIST
[2022-06-23 08:00] VITALS: BP 109/66
[2022-06-23] MEDS: CLOPIDOGREL BISULFATE 75 MG TABLET PO SCH (08:29)
[2022-06-23] MEDS: ASPIRIN 81 MG TAB.CHEW PO SCH (08:29)
[2022-06-23] MEDS: CHOLECALCIFEROL 1,000 UNIT TABLET (VIT D3) PO SCH (08:29)
[2022-06-23] MEDS: ZINC SULFATE 220 MG CAPSULE PO SCH (08:29)
[2022-06-23] MEDS: DOXYCYCLINE HYCLATE (100 MG) 100 MG TABLET PO SCH (08:29)
[2022-06-23 08:30] VITALS: BP 109/66
[2022-06-23] MEDS: ASCORBIC ACID 500 MG TABLET PO SCH (08:30)
[2022-06-23] MEDS: LISINOPRIL (20MG) 20 MG TABLET PO SCH (08:30)
[2022-06-23] MEDS: THERAHONEY GEL 1.5 OZ TUBE TP SCH (08:31)
[2022-06-23] MEDS ORDERED: MAGNESIUM OXIDE 400 MG TABLET PO ONE (10:00)
[2022-06-23] MEDS ORDERED: DOXY100T2 PO (10:49)
--- NOTE | 2022-06-23 15:02 | NUR ---
RN NOTE- PT PREPARED FOR DC. IV SITES REMOVED, BUI CATHETER REMOVED. DRESSING CHANGES PERFORMED TO RT GROIN AND RLE. TOLERATED WELL. [facility] PHONED TWICE. NO RESPONSE TO REPORT. LEFT MESSAGE AGAIN. WILL RETRY.
--- NOTE | 2022-06-23 15:50 | NUR ---
RN NOTE- PT DC AT THIS TIME. REPORT ATTEMPTED TO CALL TO [facility] AGAIN. LEFT MESSAGE.
== END 2022-06-23 16:00 | DRG 252 ==
LOC: ER 12:25 → MEDSG1 16:04 → ICU 06-18 14:46 → TELE 06-19 20:19 → MED 06-20 09:51
PROVIDERS: ATTEND Nurse Practitioner Family
PROC: 0JB70ZZ Excision of Back Subcutaneous Tissue and Fascia, Open Approach (ICD-10-PCS; principal; 2022-06-13)
PROC: 05HC33Z Insertion of Infusion Device into Left Basilic Vein, Percutaneous Approach (ICD-10-PCS; 2022-06-15)
PROC: 0JB70ZZ Excision of Back Subcutaneous Tissue and Fascia, Open Approach (ICD-10-PCS; 2022-06-17)
PROC: 30233N1 Transfusion of Nonautologous Red Blood Cells into Peripheral Vein, Percutaneous Approach (ICD-10-PCS; 2022-06-17)
PROC: 041K0JN Bypass Right Femoral Artery to Posterior Tibial Artery with Synthetic Substitute, Open Approach (ICD-10-PCS; 2022-06-18)
PROC: 0KXQ0ZZ Transfer Right Upper Leg Muscle, Open Approach (ICD-10-PCS; 2022-06-18)
DX: I70.268 Atherosclerosis of native arteries of extremities with gangrene, other extremity (principal); E43 Unspecified severe protein-calorie malnutrition; L89.223 Pressure ulcer of left hip, stage 3; L89.154 Pressure ulcer of sacral region, stage 4; L03.115 Cellulitis of right lower limb; Z68.1 Body mass index [BMI] 19.9 or less, adult; E88.09 Other disorders of plasma-protein metabolism, not elsewhere classified; Z20.822 Contact with and (suspected) exposure to COVID-19; I10 Essential (primary) hypertension; Z79.02 Long term (current) use of antithrombotics/antiplatelets; Z79.82 Long term (current) use of aspirin; Z79.51 Long term (current) use of inhaled steroids; Z79.899 Other long term (current) drug therapy; D64.9 Anemia, unspecified; E87.6 Hypokalemia; Z86.19 Personal history of other infectious and parasitic diseases
CPT/HCPCS: 36410; 36415; 71045-TC; 73630-TC; 80048-TC; 80053-TC; 80076-TC; 80202-TC; 83605-TC; 83735-TC; 84100-TC; 84484-TC; 85025-TC; 85027-TC; 85730-TC; 86850-TC; 87040-TC; 87081-TC; 97112-TC; 97116-TC; 97530-TC; A4216; A4223; A4338; A6209; A6253; A6403; A9502; C1768; C9113; C9803; G0378; J0360; J0690; J1100; J1170; J1644; J1650; J2310; J2370; J2405; J2543; J2704; J2720; J2765; J2785; J3010; J3370; J3475; J3490; J7030; J7040; J7050; J7060; P9016; P9045